=== PATIENT | female | born 1965 | race African-American/Black ===

== ENCOUNTER 2020-08-25 20:27 | Emergency (ER) | payer OTHER ==
--- OUTSIDE RECORDS SUMMARY | 2020-08-25 20:30 | XMS REPORT | Continuity of Care Document ---
:1965 Author Organization [facility] t Address [address] [place] [address] Care Team Providers Name Role Phone Erin PONCE, Huma Attending Clinician Doctor Unassigned, Name Attending Clinician Unavailable Problems This patient has no known problems. Allergies, Adverse Reactions, Alerts This patient has no known allergies or adverse reactions. Medications This patient has no known medications. Procedures This patient has no known procedures. Encounters Start End Encounter Admission Attending Care Care Encounter Source Date/Time Date/Time Type Type Clinicians Facility Department ID 2020-07-30 2020-07-30 Office VALERY Khan [id number] 14:29:17 16:07:30 Visit [facility] [id number] [place] [id number] [place] [id number] nal [address] 2020-07-30 2020-07-30 Orders Doctor PAM [id number] 00:00:00 00:00:00 Only UnassignedMARTIR [id number] [place] [facility] [id number] [id number] Results This patient has no known results.
[2020-08-25] MEDS ORDERED: NA CHLORIDE 0.9% 500 ML ONE (21:29)
[2020-08-25] MEDS ORDERED: LIDOCAINE VISCOUS 2% SOLN 15 ML UDC ONE (21:29)
[2020-08-25] MEDS ORDERED: MAGNES/ALUMIN/SIMET 30ML UCUP ONE (21:29)
[2020-08-25] MEDS ORDERED: LORazepam 2 MG/ML VIAL ONE (21:29)
[2020-08-25] MEDS ORDERED: METOCLOPRAMIDE 10 MG/2mL INJ ONE (21:30)
[2020-08-25] MEDS ORDERED: FAMOTIDINE 20 MG/2 ML VIAL IV ONE (21:30)
[2020-08-25 21:45] LABS: ALT/SGPT 21 U/L (12-78); AST/SGOT 9 U/L (15-37); Albumin 3.7 g/dL (3.4-5.0); Alkaline Phosphatase 77 U/L (45-117); BUN Blood Urea Nitrogen 8 mg/dL (7-18); Bicarbonate 28 mmol/L (21-32); Bilirubin Direct < 0.1 mg/dL (0-0.2); Bilirubin Total 0.5 mg/dL (0.2-1.0); Glucose Level 199 mg/dL (74-106); Magnesium 2.2 mg/dL (1.8-2.4); NT PRO-BNP 24 pg/mL (<125); Potassium 3.1 mmol/L (3.5-5.1); Sodium Level 138 mmol/L (136-145); Troponin (Emerg Dept Use Only) < 0.02 ng/mL (0.0-0.045)
[2020-08-25 21:46] LABS: Absolute Lymphocytes (CBC) 2.8 K/uL (0.7-4.9); Basophils % 0.9 % (0-1.3); Lymphocytes % 44.3 % (15.3-44.8); MPV 7.7 fL (7.6-11.3); RBC Red Blood Cell Count 4.89 M/uL (3.86-4.86)
[2020-08-25 22:12] LABS: Protime INR 1.09
--- NOTE | 2020-08-25 23:15 | EDPHYS ---
Physician Documentation [facility] Name: Kerry Sanford Age: 54 yrs Sex: Female : 1965 Arrival Date: 08/25/2020 Time: 20:31 Bed 5 Private MD: ED Physician Froylan Vieira HPI: 08/25 20:46 This 54 yrs old Black Female presents to ER via Ambulatory with complaints of Abdominal jmm Pain. 20:46 The patient presents with abdominal pain. jmm 22:41 Onset: The symptoms/episode began/occurred gradually, 7 month(s) ago. The symptoms do jmm not radiate. Associated signs and symptoms: Pertinent positives: nausea and vomiting. The symptoms are described as achy. Modifying factors: The symptoms are alleviated by nothing, the symptoms are aggravated by nothing. This is a 54 year old female with a history of HLP, HTN, DM that presents to the ED with complaints of epigastric abdominal pain which has been ongoing since a lap gabriella performed 7 months ago. Patient was evaluated in [place] yesterday with normal studies. Pain has continued and patient has called Dr. Schmitt who called in tramadol with no relief. . 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 - Social history:: Smoking status: Patient denies any tobacco usage or history of. ROS: 22:41 Constitutional: Negative for fever, chills, and weight loss, Cardiovascular: Negative jmm for chest pain, palpitations, and edema. 22:41 Abdomen/GI: Positive for abdominal pain. 22:41 All other systems are negative. Exam: 22:41 Constitutional: This is a well developed, well nourished patient who is awake, alert, jmm and in no acute distress. Chest/axilla: Normal chest wall appearance and motion. Cardiovascular: Regular rate and rhythm. No edema appreciated Respiratory: Normal respirations, no respiratory distress appreciated 22:41 Back: Normal ROM Skin: General appearance color normal MS/ Extremity: Moves all extremities, no obvious deformities appreciated, no edema noted to the lower extremities Neuro: Awake and alert, normal gait Psych: Behavior is normal, Mood is normal, Patient is cooperative and pleasant 22:41 Abdomen/GI: Inspection: abdomen appears normal, Bowel sounds: normal, Palpation: soft, mild abdominal tenderness, in the epigastric area. Vital Signs: 20:44 BP 181 / 100; Pulse 99; Resp 18; Temp 97.6; Pulse Ox 100% on R/A; Weight 109.77 kg; em Height 5 ft. 6 in. (167.64 cm); Pain 7/10; 21:23 BP 175 / 95; Pulse 95; Resp 17; Pulse Ox 98% ; rr5 22:33 BP 151 / 71; Pulse 90; Resp 17; Pulse Ox 98% ; Pain 6/10; rr5 23:28 BP 157 / 64; Pulse 85; Resp 16; Pulse Ox 98% ; rr5 20:44 Body Mass Index 39.06 (109.77 kg, 167.64 cm) em MDM: 20:46 Patient medically screened. [facility] 23:12 Data reviewed: vital signs, nurses notes. Counseling: I had a detailed discussion with venessa the patient and/or guardian regarding: the historical points, exam findings, and any diagnostic results supporting the discharge/admit diagnosis, lab results, radiology results, the need for outpatient follow up, to return to the emergency department if symptoms worsen or persist or if there are any questions or concerns that arise at home. ED course: Pain relieved in the ED. Patient is advised to follow up with Dr. Schmitt for reevaluation. Patient is otherwise given strict return precautions. Patient understood and agrees with the plan of care. . 08/25 20:54 Order name: Basic Metabolic Panel [facility] 08/25 20:54 Order name: CBC with Diff rr08/25 20:54 Order name: LFT's; Complete Time: 22:04 5 08/25 20:54 Order name: Magnesium; Complete Time: 22:04 [facility] 08/25 20:54 Order name: NT PRO-BNP; Complete Time: 22:04 [facility] 08/25 20:54 Order name: PT-INR; Complete Time: 22:18 [facility] 08/25 20:54 Order name: Troponin (emerg Dept Use Only); Complete Time: 22:04 [facility] 08/25 20:54 Order name: XRAY Chest (1 view) rr5 08/25 20:54 Order name: Basic Metabolic Panel; Complete Time: 22:04 EDMS 08/25 20:54 Order name: CBC with Automated Diff; Complete Time: 22:04 EDMS 08/25 21:05 Order name: CT Abd/Pelvis - Without Contrast [facility] 08/25 20:54 Order name: EKG; Complete Time: 20:54 rr5 08/25 20:54 Order name: Cardiac monitoring; Complete Time: 20:54 rr5 08/25 20:54 Order name: EKG - Nurse/Tech; Complete Time: 20:54 rr5 08/25 20:54 Order name: IV Saline Lock; Complete Time: 20:54 rr5 08/25 20:54 Order name: Labs collected and sent; Complete Time: 20:54 rr5 08/25 20:54 Order name: O2 Per Protocol; Complete Time: 20:54 rr5 08/25 20:54 Order name: O2 Sat Monitoring; Complete Time: 20:54 rr5 Administered Medications: 21:30 Drug: NS 0.9% 500 ml Route: IV; Rate: bolus; Site: right wrist; rr5 22:15 Follow up: Response: No adverse reaction; IV Status: Completed infusion; IV Intake: rr5 500ml 21:30 Drug: Reglan 20 mg Route: IVP; Site: right wrist; rr5 22:30 Follow up: Response: No adverse reaction rr5 21:32 Drug: Pepcid 20 mg Route: IVP; Site: right wrist; rr5 22:32 Follow up: Response: No adverse reaction; Pain is decreased rr5 21:35 Drug: Ativan 1 mg Route: IVP; Site: right wrist; rr5 22:35 Follow up: Response: No adverse reaction rr5 21:36 Drug: GI Cocktail without - (Maalox Suspension 30 ml, Lidocaine Liquid 2 % 15 rr5 ml) Route: PO; 22:30 Follow up: Response: No adverse reaction; Pain is decreased rr5 Disposition: 08/26 05:09 Co-signature as Attending Physician, Froylan Vieira MD I agree with the assessment and kaia plan of care. Disposition: 08/25/20 23:14 Discharged to Home. Impression: Generalized abdominal pain. - Condition is Stable. - Discharge Instructions: Abdominal Pain, Adult. - Medication Reconciliation Form, Thank You Letter, Antibiotic Education, Prescription Opioid Use form. - Follow up: Private Physician; When: 2 - 3 days; Reason: Recheck today's complaints, Continuance of care, Re-evaluation by your physician. Signatures: Dispatcher [employer] Froylan Rust MD MD cha Mickail, Joel, PA PA jmm Munoz, Edgar, RN RN em Ian Jay RN RN rr5 Corrections: (The following items were deleted from the chart) 08/25 23:31 23:14 08/25/2020 23:14 Discharged to Home. Impression: Generalized abdominal pain. rr5 Condition is Stable. Forms are Medication Reconciliation Form, Thank You Letter, Antibiotic Education, Prescription Opioid Use. Follow up: Private Physician; When: 2 - 3 days; Reason: Recheck today's complaints, Continuance of care, Re-evaluation by your physician. venessa
--- NOTE | 2020-08-25 23:15 | ER ---
Nurse's Notes [facility] Name: Kerry Sanford Age: 54 yrs Sex: Female : 1965 Arrival Date: 08/25/2020 Time: 20:31 Bed 5 Private MD: Diagnosis: Generalized abdominal pain Presentation: 08/25 20:44 Chief complaint: Patient states: abdominal pain with N/V/D since yesterday, was seen at [facility] and diagnosed with gastritis/esophagitis and discharged, covid negative. Coronavirus screen: Client denies travel out of the [place] in the last 14 days. The client reports previous COVID testing was negative. Date of collection: August 24, 2020. Ebola Screen: Patient negative for fever greater than or equal to 101.5 degrees Fahrenheit, and additional compatible Ebola Virus Disease symptoms Patient denies exposure to infectious person. Patient denies travel to an Ebola-affected area in the 21 days before illness onset. No symptoms or risks identified at this time. Initial Sepsis Screen: Does the patient meet any 2 criteria? HR > 90 bpm. No. Patient's initial sepsis screen is negative. Does the patient have a suspected source of infection? No. Patient's initial sepsis screen is negative. Risk Assessment: Do you want to hurt yourself or someone else? Patient reports no desire to harm self or others. Onset of symptoms was August 25, 2020. 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 - Social history:: Smoking status: Patient denies any tobacco usage or history of. Screenin:55 Abuse screen: Denies threats or abuse. Denies injuries from another. Nutritional rr5 screening: No deficits noted. Tuberculosis screening: No symptoms or risk factors identified. Fall Risk IV access (20 points). Total Grubbs Fall Scale indicates No Risk (0-24 pts). Assessment: 20:40 General: Appears in no apparent distress. uncomfortable, Behavior is calm, cooperative, rr5 appropriate for age. 20:40 Pain: Complains of pain in epigastric area Pain currently is 7 out of 10 on a pain rr5 scale. Quality of pain is described as aching, Pain began gradually, Is intermittent. Neuro: Level of Consciousness is awake, alert, obeys commands, Oriented to person, place, time, situation. Cardiovascular: Capillary refill < 3 seconds Patient's skin is warm and dry. Respiratory: Airway is patent Respiratory effort is even, unlabored, Respiratory pattern is regular, symmetrical. GI: Abdomen is round non-distended, Abd is soft and non tender Reports upper abdominal pain. : No signs and/or symptoms were reported regarding the genitourinary system. EENT: No signs and/or symptoms were reported regarding the EENT system. Derm: Skin is intact, is healthy with good turgor, Skin temperature is warm. Musculoskeletal: Capillary refill < 3 seconds. 21:40 Reassessment: Patient appears in no apparent distress at this time. Patient is alert, rr5 oriented x 3, equal unlabored respirations, skin warm/dry/pink. awaiting for results. 22:33 Reassessment: Patient appears in no apparent distress at this time. Patient is alert, rr5 oriented x 3, equal unlabored respirations, skin warm/dry/pink. Patient states feeling better. 23:29 Reassessment: Patient appears in no apparent distress at this time. Patient is alert, rr5 oriented x 3, equal unlabored respirations, skin warm/dry/pink. discharge instruction given and explained without complaints made. Vital Signs: 20:44 BP 181 / 100; Pulse 99; Resp 18; Temp 97.6; Pulse Ox 100% on R/A; Weight 109.77 kg; em Height 5 ft. 6 in. (167.64 cm); Pain 7/10; 21:23 BP 175 / 95; Pulse 95; Resp 17; Pulse Ox 98% ; rr5 22:33 BP 151 / 71; Pulse 90; Resp 17; Pulse Ox 98% ; Pain 6/10; rr5 23:28 BP 157 / 64; Pulse 85; Resp 16; Pulse Ox 98% ; rr5 20:44 Body Mass Index 39.06 (109.77 kg, 167.64 cm) em ED Course: 20:31 Patient arrived in ED. cf2 20:40 Nasir Bird PA is PHCP. jmm 20:40 Froylan Vieira MD is Attending Physician. jmm 20:44 Ian Jay, TALYA is Primary Nurse. rr5 20:47 Triage completed. em 20:49 Arm band placed on. em 20:54 EKG done, by ED staff, reviewed by Froylan Vieira MD. Inserted saline lock: 20 gauge in rr5 right wrist, using aseptic technique. Blood collected. 20:57 Patient has correct armband on for positive identification. Bed in low position. Call rr5 light in reach. ekg monitor tech on. Pulse ox on. NIBP on. 21:26 CT Abd/Pelvis - Without Contrast In Process Unspecified. EDMS 21:34 XRAY Chest (1 view) In Process Unspecified. EDMS 23:29 No provider procedures requiring assistance completed. IV discontinued, intact, rr5 bleeding controlled, No redness/swelling at site. Pressure dressing applied. Administered Medications: 21:30 Drug: NS 0.9% 500 ml Route: IV; Rate: bolus; Site: right wrist; rr5 22:15 Follow up: Response: No adverse reaction; IV Status: Completed infusion; IV Intake: rr5 500ml 21:30 Drug: Reglan 20 mg Route: IVP; Site: right wrist; rr5 22:30 Follow up: Response: No adverse reaction rr5 21:32 Drug: Pepcid 20 mg Route: IVP; Site: right wrist; rr5 22:32 Follow up: Response: No adverse reaction; Pain is decreased rr5 21:35 Drug: Ativan 1 mg Route: IVP; Site: right wrist; rr5 22:35 Follow up: Response: No adverse reaction rr5 21:36 Drug: GI Cocktail without - (Maalox Suspension 30 ml, Lidocaine Liquid 2 % 15 rr5 ml) Route: PO; 22:30 Follow up: Response: No adverse reaction; Pain is decreased rr5 Intake: 22:15 IV: 500ml; Total: 500ml. rr5 Outcome: 23:14 Discharge ordered by . jmm 23:29 Discharged to home via wheelchair, with family. rr5 23:29 Condition: stable 23:29 Discharge instructions given to patient, Instructed on discharge instructions, follow up and referral plans. Demonstrated understanding of instructions, follow-up care. 23:31 Patient left the ED. rr5 Signatures: Dispatcher [employer] Nasir Jackson PA PA jmm Munoz, Edgar RN RN Ian Friend RN RN rr5 Dariel Bradley 2
[2020-08-26 03:38] VITALS: TEMP 97.6
[2020-08-26 03:39] VITALS: O2SAT 98
[2020-08-26 03:42] VITALS: BP 157/64
--- NOTE | 2020-08-26 08:36 | RAD REPORT ---
EXAM DESCRIPTION: RAD - Chest Single View - 08/25/2020 9:34 pm CLINICAL HISTORY: epigastirc pain Chest pain. COMPARISON: CHEST SINGLE VIEW dated 03/19/2012; ABDOMEN ACUTE SERIES dated 06/17/2011; ABDOMEN ACUTE SERIES dated 01/28/2007 FINDINGS: Portable technique limits examination quality. The lungs are grossly clear. The heart is normal in size. No displaced fractures. Cervical hardware p late. IMPRESSION: No acute intrathoracic process suspected.
--- NOTE | 2020-08-26 09:51 | RAD REPORT ---
EXAM DESCRIPTION: Abdomen Pelvis Wo Contrast CLINICAL HISTORY: Abdominal pain COMPARISON: None Available TECHNIQUE: Contiguous axial images of the abdomen and pelvis were obtained followed by reconstructio n images. This exam was performed according to our departmental dose-optimization program, which incl udes automated exposure control, adjustment of the mA and/or kV according to patient size and/or use of iterative reconstruction technique. FINDINGS: There is atherosclerosis. Patient is status post cholecystectomy. Calcifications within th e pelvis compatible with phleboliths. The liver, spleen, pancreas and kidneys are within normal limits. There is no hydronephrosis or renal stones. Adrenal glands are within normal limits. Aorta is of normal caliber and tapering. There is n o free fluid in the abdomen or pelvis. There is no bowel obstruction. There is no stranding of the me senteric fat to suggest an inflammatory response. The appendix is within normal limits. There is no p ericecal inflammation. IMPRESSION: No acute intra-abdominal abnormality. Electronically signed by: Elpidio Be MD 08/25/2020 9:48 PM MAINTENANCE CONSTRUCTION HELPER Due to temporary technical issues with the PACS/Fluency reporting system, reports are being signed by the in house radiologist without review as a courtesy to ensure prompt reporting. The interpreting r adiologist is fully responsible for the content of the report.
--- NOTE | 2020-08-26 22:27 | EKG ---
Test Date: 2020-08-25 Test Time: 20:57:49 [place] Attendant: NATASHA MEASUREMENT RESULTS: Intervals: Rate: 95 OK: 152 QRSD: 92 QT: 356 QTc: 447 [place]: P: 74 OK: 152 QRS: 45 T: 54 INTERPRETIVE STATEMENTS: Normal sinus rhythm Normal ECG Compared to ECG 03/21/2012 03:22:49 No significant changes Electronically Signed On 08-26-20 22:25:32 PERSONAL LINES SALES REP by Christian Inman
== END 2020-08-25 23:31 | disposition home or self-care (01) ==
LOC: ER 20:27
DX: R10.84 Generalized abdominal pain (principal); I10 Essential (primary) hypertension; Z88.5 Allergy status to narcotic agent; Z88.8 Allergy status to other drugs, medicaments and biological substances
CPT/HCPCS: 96361; 93005; 85025; 80048; 36415; 83735; 85610; 80076; 84484; 83880; 74176; 71045; 96375; 96374; 99284; J2765; J7040

== ENCOUNTER 2020-09-20 23:44 | Emergency (ER) | payer OTHER ==
--- OUTSIDE RECORDS SUMMARY | 2020-09-20 23:48 | XMS REPORT | Continuity of Care Document ---
:[address] [facility] t Address [address] [place] [address] Care Team Providers Name Role Phone Doctor Unassigned, Name Attending Clinician Unavailable Erin PONCE, A Attending Clinician Problems This patient has no known problems. Allergies, Adverse Reactions, Alerts This patient has no known allergies or adverse reactions. Medications This patient has no known medications. Procedures This patient has no known procedures. Encounters Start End Encounter Admission Attending Care Care Encounter Source Date/Time Date/Time Type Type Clinicians Facility Department ID 2020-08-24 2020-08-24 Orders Doctor OROZCO [id number] 00:00:00 00:00:00 Only UnassignedMARTIR [id number] [place] [facility] [id number] 2020-07-30 2020-07-30 Office VALERY Khan [id number] 14:29:17 16:07:30 Visit [facility] [id number] [place] [id number] [place] [id number] nal 044 [address] 2020-07-30 2020-07-30 Orders Doctor OROZCO [id number] 00:00:00 00:00:00 Only UnassignedMARTIR [id number] [place] [facility] [id number] [id number] Results This patient has no known results.
[2020-09-21 00:19] LABS: Absolute Lymphocytes (CBC) 2.4 K/uL (0.7-4.9); Basophils % 0.5 % (0-1.3); Lymphocytes % 38.6 % (15.3-44.8); MPV 7.3 fL (7.6-11.3); RBC Red Blood Cell Count 4.76 M/uL (3.86-4.86)
[2020-09-21] MEDS ORDERED: MORPHINE 4 MG/ML SYR ONE ×2 (00:34→02:47)
[2020-09-21] MEDS ORDERED: ONDANSETRON 4 MG/2 ML VIAL ONE (00:34)
[2020-09-21] MEDS ORDERED: NA CHLORIDE 0.9% 1,000 ML ONE (00:35)
[2020-09-21] MEDS ORDERED: FAMOTIDINE 20 MG/2 ML VIAL IV ONE (00:35)
[2020-09-21 00:59] LABS: Albumin 3.8 g/dL (3.4-5.0); Bilirubin Direct 0.1 mg/dL (0-0.2); Bilirubin Total 0.7 mg/dL (0.2-1.0); Potassium 2.7 mmol/L (3.5-5.1); Protein, Total 7.8 g/dL (6.4-8.2)
[2020-09-21] MEDS ORDERED: POTASSIUM 25 MEQ EFFERV TAB ONE (02:46)
[2020-09-21] MEDS ORDERED: KCL 20 MEQ/100 mL IVPB 20 MEQ/100 ML BAG IV ONE (03:03)
[2020-09-21] MEDS ORDERED: NA CHLORIDE 0.9% 100 ML ONE (03:03)
[2020-09-21] MEDS ORDERED: METOCLOPRAMIDE 10 MG/2mL INJ ONE (03:22)
[2020-09-21] MEDS ORDERED: PROMETHAZINE INJ 25 MG/ML AMP ONE (03:22)
--- NOTE | 2020-09-21 04:33 | EDPHYS ---
Physician Documentation [facility] Name: Kerry Sanford Age: 54 yrs Sex: Female : 1965 Arrival Date: 09/20/2020 Time: 23:48 Bed 20 Private MD: ED Physician Curt Zee HPI: 09/21 00:31 This 54 yrs old Black Female presents to ER via Wheelchair with complaints of Abdominal mh7 Pain. 00:31 The patient presents with abdominal pain in the epigastric area. Onset: The mh7 symptoms/episode began/occurred 1 week(s) ago, intermittent for 8 months. The symptoms do not radiate. Associated signs and symptoms: Pertinent positives: nausea, vomiting, and diarrhea, Pertinent negatives: anorexia, blood in stools, chest pain, constipation, dysuria, fever, headache, hematuria, palpitations, shortness of breath, vaginal discharge, vomiting blood. The symptoms are described as intermittent, vague, waxing/waning. Modifying factors: The symptoms are alleviated by nothing, the symptoms are aggravated by nothing. Severity of pain: At its worst the pain was moderate 6 day(s) ago, in the emergency department the pain is unchanged. The patient has experienced similar episodes in the past, multiple times. The patient has been recently seen by a physician: outside ED 6 days ago. 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 - Social history:: Smoking status: Patient denies any tobacco usage or history of. Patient/guardian denies using alcohol, street drugs. ROS: 00:31 Constitutional: Negative for fever, chills, and weight loss, Eyes: Negative for injury, mh7 pain, redness, and discharge, ENT: Negative for injury, pain, and discharge, Neck: Negative for injury, pain, and swelling, Cardiovascular: Negative for chest pain, palpitations, and edema, Respiratory: Negative for shortness of breath, cough, wheezing, and pleuritic chest pain, Back: Negative for injury and pain, : Negative for injury, bleeding, discharge, and swelling, MS/Extremity: Negative for injury and deformity, Skin: Negative for injury, rash, and discoloration, Neuro: Negative for headache, weakness, numbness, tingling, and seizure, Psych: Negative for depression, anxiety, suicide ideation, homicidal ideation, and hallucinations, Allergy/Immunology: Negative for hives, rash, and allergies, Endocrine: Negative for neck swelling, polydipsia, polyuria, polyphagia, and marked weight changes, Hematologic/Lymphatic: Negative for swollen nodes, abnormal bleeding, and unusual bruising. Exam: 00:31 Head/Face: Normocephalic, atraumatic. Eyes: Pupils equal round and reactive to light, mh7 extra-ocular motions intact. Lids and lashes normal. Conjunctiva and sclera are non-icteric and not injected. Cornea within normal limits. Periorbital areas with no swelling, redness, or edema. Neck: Trachea midline, no thyromegaly or masses palpated, and no cervical lymphadenopathy. Supple, full range of motion without nuchal rigidity, or vertebral point tenderness. No Meningismus. Chest/axilla: Normal chest wall appearance and motion. Nontender with no deformity. No lesions are appreciated. Cardiovascular: Regular rate and rhythm with a normal S1 and S2. No gallops, murmurs, or rubs. Normal PMI, no JVD. No pulse deficits. Respiratory: Lungs have equal breath sounds bilaterally, clear to auscultation and percussion. No rales, rhonchi or wheezes noted. No increased work of breathing, no retractions or nasal flaring. 00:31 Back: No spinal tenderness. No costovertebral tenderness. Full range of motion. Skin: Warm, dry with normal turgor. Normal color with no rashes, no lesions, and no evidence of cellulitis. MS/ Extremity: Pulses equal, no cyanosis. Neurovascular intact. Full, normal range of motion. Neuro: Awake and alert, GCS 15, oriented to person, place, time, and situation. Cranial nerves II-XII grossly intact. Motor strength 5/5 in all extremities. Sensory grossly intact. Cerebellar exam normal. Normal gait. Psych: Awake, alert, with orientation to person, place and time. Behavior, mood, and affect are within normal limits. 00:31 Constitutional: The patient appears in no acute distress, alert, awake, uncomfortable. 00:31 Abdomen/GI: Inspection: obese Bowel sounds: normal, in all quadrants, Palpation: moderate abdominal tenderness, in the epigastric area, mass, is not appreciated, rebound tenderness, is not appreciated, voluntary guarding, is not appreciated, involuntary guarding, is not appreciated, no appreciated organomegaly, Rectal exam: the exam is deferred, because of patient request, Indicators: McBurney's point is not tender, Leon's sign is negative, Rovsing's sign is negative, Obturator sign is negative, Psoas sign is negative, Liver: no appreciated palpable abnormalities, Hernia: not appreciated. Vital Signs: 00:01 BP 199 / 99; Pulse 110; Resp 18 S; Temp 98.2(O); Pulse Ox 100% on R/A; Weight 106.14 kg bb (R); Height 5 ft. 5 in. (165.10 cm) (R); Pain 10/10; 01:00 BP 189 / 114; Pulse 91; Resp 17; Pulse Ox 100% on R/A; rv 02:15 BP 183 / 83; Pulse 94; Resp 15; Pulse Ox 96% on R/A; rv 03:56 BP 177 / 68; Pulse 96; Resp 16; Pulse Ox 95% on R/A; rv 04:43 BP 170 / 67; Pulse 64; Resp 15; Pulse Ox 98% on R/A; rv 00:01 Body Mass Index 38.94 (106.14 kg, 165.10 cm) bb MDM: 04:31 Differential diagnosis: bowel obstruction, diverticulitis, gastritis, non-specific abd mh7 pain, pancreatitis, Peptic Ulcer Disease, Perf. Duodenal Ulcer, Pyelonephritis, Ureterolithiasis, urinary tract infection. Data reviewed: vital signs, nurses notes, lab test result(s), amylase and lipase, CBC, electrolytes, urinalysis, EKG. Data interpreted: Pulse oximetry: on room air is 95 %. Interpretation: normal. Counseling: I had a detailed discussion with the patient and/or guardian regarding: the historical points, exam findings, and any diagnostic results supporting the discharge/admit diagnosis, the presence of at least one elevated blood pressure reading (>120/80) during this emergency department visit, lab results, to return to the emergency department if symptoms worsen or persist or if there are any questions or concerns that arise at home. Response to treatment: the patient's symptoms have mildly improved after treatment. Refusal of service: The patient/guardian displays adequate decision making capability and despite a detailed discussion of alternatives, benefits, risks, and consequences refuses: CT Scan, all X-rays. 04:33 Patient medically screened. [facility] 09/21 00:06 Order name: Basic Metabolic Panel; Complete Time: :40 09/21 00:06 Order name: CBC with Diff; Complete Time: :40 09/21 00:06 Order name: Hepatic Function; Complete Time: :40 09/21 00:06 Order name: Lipase; Complete Time: :40 09/21 02:19 Order name: Ketone, Serum; Complete Time: 03:21 [facility] 09/21 02:35 Order name: Urine Dipstick--Ancillary (enter results) rv 09/21 02:36 Order name: Urine Dipstick-Ancillary [facility] 09/21 00:06 Order name: IV Saline Lock; Complete Time: 00:06 09/21 00:06 Order name: Labs collected and sent; Complete Time: 00:06 09/21 00:14 Order name: Urine Dipstick-Ancillary (obtain specimen); Complete Time: 02:28 [facility] 09/21 00:14 Order name: EKG - Nurse/Tech; Complete Time: 00:28 [facility] Administered Medications: 00:28 Drug: NS 0.9% 1000 ml Route: IV; Rate: 1000 ml; Site: right forearm; rv 02:27 Follow up: IV Status: Completed infusion; IV Intake: 1000ml rv 00:28 Drug: morphine 4 mg Route: IVP; Site: right forearm; rv 02:50 Follow up: Response: No adverse reaction; Pain is decreased; RASS: Alert and Calm (0) rv 00:28 Drug: Zofran (Ondansetron) 4 mg Route: IVP; Site: right forearm; rv 02:50 Follow up: Response: No adverse reaction rv 00:28 Drug: Pepcid (famotidine) 20 mg Route: IVP; Site: right forearm; rv 02:51 Follow up: Response: No adverse reaction rv 02:39 Drug: morphine 4 mg {Note: RASS 0.} Route: IVP; Site: right forearm; bb 04:45 Follow up: Response: No adverse reaction; Pain is decreased; RASS: Alert and Calm (0) rv 02:46 Not Given (Patient Refused): Potassium Effervescent Tablet 50 mEq PO once; dissolve in bb 4 ounces of water or juice 02:50 Drug: Potassium Chloride 20 mEq Route: IV; Rate: calculated rate; Site: right forearm; rv 04:45 Follow up: IV Status: Completed infusion; IV Intake: 100ml rv 03:09 Drug: Reglan 10 mg Route: IVP; Site: right forearm; rv 04:45 Follow up: Response: No adverse reaction; Nausea is decreased rv Disposition: 09/21/20 04:33 Patient has left against medical advice. Impression: Upper abdominal pain, unspecified, Nausea with vomiting, unspecified, Hypokalemia, Diarrhea, unspecified. - Patients states they are going to Home. - Condition is Stable. - Discharge Instructions: Diarrhea, Adult, Nausea and Vomiting, Adult, Abdominal Pain, Adult, [id number]. - Prescriptions for Zofran ODT 4 mg Oral tablet,disintegrating - place 1 tablet by TRANSLINGUAL route every 8 hours As needed; 10 tablet. Bentyl 20 mg Oral Tablet - take 1 tablet by ORAL route every 6 hours As needed; 20 tablet. Follow up: Private Physician; When: 1 - 2 days; Reason: Worsening of condition, Recheck today's complaints, Continuance of care, Re-evaluation by your physician. - Problem is an ongoing problem. - Symptoms have improved. Signatures: Dispatcher [employer] EDKyra Barroso RN RN Corey Floyd RN RN Curt Guardado MD MD mh7 Corrections: (The following items were deleted from the chart) 04:33 04:33 09/21/2020 04:33 Patients has left against medical advice. Impression: Upper mh7 abdominal pain, unspecified; Nausea with vomiting, unspecified. Patient states they are going to Home. Condition is Stable. Follow up: Private Physician; When: 1 - 2 days; Reason: Worsening of condition, Recheck today's complaints, Continuance of care, Re-evaluation by your physician. Problem is an ongoing problem. Symptoms have improved. mh7 04:45 04:33 09/21/2020 04:33 Patients has left against medical advice. Impression: Upper rv abdominal pain, unspecified; Nausea with vomiting, unspecified; Hypokalemia; Diarrhea, unspecified. Patient states they are going to Home. Condition is Stable. Follow up: Private Physician; When: 1 - 2 days; Reason: Worsening of condition, Recheck today's complaints, Continuance of care, Re-evaluation by your physician. Problem is an ongoing problem. Symptoms have improved. mh7
--- NOTE | 2020-09-21 04:33 | ER ---
Nurse's Notes [facility] Name: Kerry Sanford Age: 54 yrs Sex: Female : 1965 Arrival Date: 09/20/2020 Time: 23:48 Bed 20 Private MD: Diagnosis: Upper abdominal pain, unspecified;Nausea with vomiting, unspecified;Hypokalemia;Diarrhea, unspecified Presentation: 09/21 00:01 Chief complaint: Patient states: she had her gallbladder out about 8 months ago and has bb been sick [place] but she is still having right upper quad pain, nausea, vomiting and diarrhea. Coronavirus screen: The client reports previous COVID testing was negative. Date of collection: September 15, 2020. Ebola Screen: No symptoms or risks identified at this time. Initial Sepsis Screen: Does the patient meet any 2 criteria? No. Patient's initial sepsis screen is negative. Does the patient have a suspected source of infection? Yes: Acute abdominal pain. Risk Assessment: Do you want to hurt yourself or someone else? Patient reports no desire to harm self or others. Onset of symptoms was September 15, 2020. 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 - Social history:: Smoking status: Patient denies any tobacco usage or history of. Patient/guardian denies using alcohol, street drugs. Screenin:07 Abuse screen: Denies threats or abuse. Denies injuries from another. Nutritional rv screening: No deficits noted. Tuberculosis screening: No symptoms or risk factors identified. Fall Risk None identified. Assessment: 00:07 General: Appears uncomfortable, Behavior is calm, cooperative. Pain: Complains of pain rv in abdomen. Neuro: Level of Consciousness is awake, alert, obeys commands, Oriented to person, place, time, situation. Cardiovascular: Patient's skin is warm and dry. Respiratory: Airway is patent Respiratory effort is even, unlabored. GI: Bowel sounds present X 4 quads. Abd is soft and non tender X 4 quads. GI: Pt is actively vomiting. Derm: Skin is intact. 02:52 Reassessment: PATIENT IS STILL IN PAIN AND AND NAUSEATED, REFERRED TO DR ZEE, DR annabelle ZEE AT BEDSIDE, EXPLAINED THE TEST RESULTS AND PLAN OF CARE, RECEIVED NEW ORDERS, PATIENT TAKEN TO THE CT SCAN. 03:23 Reassessment: PATIENT UNABLE TO FINISH CT SCAN, COMPLAINING OF NAUSEA AND ANXIETY, rv REFERRED TO DR ZEE, PATIENT REFUSED TO DO ANYTHING FOR NOW. 04:44 Reassessment: PATIENT REFUSED THE CT SCAN. rv Vital Signs: 00:01 BP 199 / 99; Pulse 110; Resp 18 S; Temp 98.2(O); Pulse Ox 100% on R/A; Weight 106.14 kg bb (R); Height 5 ft. 5 in. (165.10 cm) (R); Pain 10/10; 01:00 BP 189 / 114; Pulse 91; Resp 17; Pulse Ox 100% on R/A; rv 02:15 BP 183 / 83; Pulse 94; Resp 15; Pulse Ox 96% on R/A; rv 03:56 BP 177 / 68; Pulse 96; Resp 16; Pulse Ox 95% on R/A; rv 04:43 BP 170 / 67; Pulse 64; Resp 15; Pulse Ox 98% on R/A; rv 00:01 Body Mass Index 38.94 (106.14 kg, 165.10 cm) bb ED Course: 09/20 23:48 Patient arrived in ED. cf2 23:56 Curt Zee MD is Attending Physician. mh7 23:57 Corey Rouse, TALYA is Primary Nurse. rv 09/21 00:04 Triage completed. bb 00:06 Arm band placed on Patient placed in an exam room, on a stretcher, on pulse oximetry. bb 00:06 Initial lab(s) drawn, by me, sent to lab. Inserted saline lock: 20 gauge in right rv forearm, using aseptic technique. Blood collected. 00:07 Patient has correct armband on for positive identification. Pulse ox on. NIBP on. rv 00:29 EKG done, by ED staff, reviewed by Curt Zee MD. rv 01:00 Notified ED physician of a critical lab result(s). [POTASSIUM 2.7. rv 04:44 No provider procedures requiring assistance completed. IV discontinued, intact, rv bleeding controlled, No redness/swelling at site. Pressure dressing applied. Administered Medications: 00:28 Drug: NS 0.9% 1000 ml Route: IV; Rate: 1000 ml; Site: right forearm; rv 02:27 Follow up: IV Status: Completed infusion; IV Intake: 1000ml rv 00:28 Drug: morphine 4 mg Route: IVP; Site: right forearm; rv 02:50 Follow up: Response: No adverse reaction; Pain is decreased; RASS: Alert and Calm (0) rv 00:28 Drug: Zofran (Ondansetron) 4 mg Route: IVP; Site: right forearm; rv 02:50 Follow up: Response: No adverse reaction rv 00:28 Drug: Pepcid (famotidine) 20 mg Route: IVP; Site: right forearm; rv 02:51 Follow up: Response: No adverse reaction rv 02:39 Drug: morphine 4 mg {Note: RASS 0.} Route: IVP; Site: right forearm; bb 04:45 Follow up: Response: No adverse reaction; Pain is decreased; RASS: Alert and Calm (0) rv 02:46 Not Given (Patient Refused): Potassium Effervescent Tablet 50 mEq PO once; dissolve in bb 4 ounces of water or juice 02:50 Drug: Potassium Chloride 20 mEq Route: IV; Rate: calculated rate; Site: right forearm; rv 04:45 Follow up: IV Status: Completed infusion; IV Intake: 100ml rv 03:09 Drug: Reglan 10 mg Route: IVP; Site: right forearm; rv 04:45 Follow up: Response: No adverse reaction; Nausea is decreased rv Intake: 02:27 IV: 1000ml; Total: 1000ml. rv 04:45 IV: 100ml; Total: 1100ml. rv Outcome: 04:44 Discharged to home ambulatory, with family. rv 04:44 Condition: improved 04:44 Discharge instructions given to patient, Instructed on discharge instructions, follow up and referral plans. medication usage, Demonstrated understanding of instructions, follow-up care, medications, Prescriptions given X 2. 04:45 Patient left the ED. rv Signatures: Kyra Boyd RN RN Corey Floyd RN RN rv Dariel Bradley 2 Curt Zee MD MD mh7
[2020-09-21 04:50] VITALS: TEMP 98.2
[2020-09-21 05:02] VITALS: BP 170/67; O2SAT 98
[2020-09-21 06:21] LABS: Urine Blood NEGATIVE (Negative); Urine Protein NEGATIVE (NEG)
== END 2020-09-21 04:45 | disposition left against medical advice (07) ==
LOC: ER 23:44
DX: E87.6 Hypokalemia (principal); R11.2 Nausea with vomiting, unspecified; R19.7 Diarrhea, unspecified; I10 Essential (primary) hypertension; E11.9 Type 2 diabetes mellitus without complications; E78.5 Hyperlipidemia, unspecified; Z88.5 Allergy status to narcotic agent; Z88.8 Allergy status to other drugs, medicaments and biological substances
CPT/HCPCS: 93005; 85025; 80048; 36415; 82010; 80076; 81003; 83690; J2765; J2550; J3480; J7030; J2405; 96361; 96365; 96366; 96375; 99284

== ENCOUNTER 2020-09-21 15:55 | Inpatient (IN) | payer OTHER ==
--- OUTSIDE RECORDS SUMMARY | 2020-09-21 15:58 | XMS REPORT | Continuity of Care Document ---
:1965 Author Organization Formerly [facility] t Address [address] [place] [address] Care Team Providers Name Role Phone Doctor [...] ID 2020-08-24 2020-08-24 Orders Doctor OROZCO [id number] 00:00:00 00:00:00 Only UnassignedMARTIR [id number] [place] [facility] [phone] [id number] 2020-07-30 2020-07-30 Office VALERY Khan [id number] 14:29:17 16:07:30 [id number] [place] [id number] [place] [id number] [place] [address] 2020-07-30 2020-07-30 Orders Doctor OROZCO [id number] 00:00:00 00:00:00 Only UnassignedMARTIR [id number] [place] [facility] [phone] [id number] Results This patient has no known results.
[2020-09-21] MEDS ORDERED: PROMETHAZINE INJ 25 MG/ML AMP IV PRN (16:29)
[2020-09-21] MEDS ORDERED: D50W 25 GM/50 ML VIAL IV PRN ×2 (16:32→16:55)
[2020-09-21] MEDS ORDERED: SODIUM CHLORIDE 0.9% 10ML INJ IV PRN (16:46)
[2020-09-21] MEDS ORDERED: ACETAMINOPHEN 500 MG TAB PO PRN (16:47)
[2020-09-21] MEDS ORDERED: LORazepam 2 MG/ML VIAL IV PRN (16:51)
[2020-09-21] MEDS ORDERED: GLUCAGON 1 MG/VIAL IM PRN (17:00)
--- NOTE | 2020-09-21 17:01 | P.HP ---
Certification for Inpatient Patient admitted to: Observation With expected LOS: <2 Midnights Patient will require the following post-hospital care: None Practitioner: I am a practitioner with admitting privileges, knowledge of patient current condition, hospital course, and medical plan of care. Services: Services provided to patient in accordance with Admission requirements found in Title 42 Section 412.3 of the Code of Federal Regulations Patient History Date of Service: 09/21/20 Primary Care Provider: Dr. Khan; GI-Dr. Schmitt Reason for admission: Nausea, vomiting, diarrhea History of Present Illness: 54-year-old -Algerian female with history of PVD, depression, hypertension and diabetes. Patient is a direct admit from GI. GI reports patient had nausea, vomiting, diarrhea and abdominal pain. Patient was actually seen in the emergency room last night. Her symptoms have not improved. Patient reports that her symptoms began January 2020 after she had a cholecystectomy. She reports since that time she has been having constant diarrhea. Diarrhea is watery and bilious in nature. Some mucus noted. She reports 10 pound weight loss since that time. She has bouts of nausea, vomiting. Recently she had epigastric pain. She reports having a foul taste to her mouth. Symptoms are not improved. As of most recent Lexapro was started about 2 weeks ago for increased anxiety. She also had her trazodone increased to 100 mg daily. She denies any fever, chills noted. She was a direct admit for further evaluation. Lab pending at this time. She takes losartan 100 mg for hypertension. She is not been able to take anything for diabetes as she has been tried on long-acting insulin with increased nausea and vomiting. Allergies meperidine HCl [From Demerol] Allergy (Verified 07/21/14 16:23) Anaphylaxis venlafaxine HCl [From Effexor] Allergy (Verified 07/21/14 16:23) Anaphylaxis Home medications list reviewed: Yes Home Medications: Clopidogrel Bisulfate [Plavix] 75 mg PO DAILY 09/21/20 Escitalopram Oxalate [Lexapro] 10 mg PO DAILY 09/21/20 Losartan Potassium 100 mg PO DAILY 09/21/20 Pantoprazole Sodium [Protonix] 20 mg PO DAILY 09/21/20 Trazodone HCl 100 mg PO BEDTIME 09/21/20 - Past Medical/Surgical History Diabetic: Yes -: Diabetes mellitus type 2 -: Hypertension -: Peripheral vascular disease -: Depression -: GERD -: Back surgery -: -: Cholecystectomy -: Tubal ligation -: Hysterectomy Psychosocial/ Personal History: Patient works at [employer]. - Family History Father -: Cancer (Colon cancer) - Social History Smoking Status: Never smoker Alcohol use: No CD- Drugs: No Caffeine use: No Place of Residence: Home Review of Systems General: Chills, As per HPI Eyes: Unremarkable ENT: Unremarkable Respiratory: Unremarkable Cardiovascular: Unremarkable Gastrointestinal: Nausea, Vomiting, Abdominal Pain, Diarrhea, As per HPI Genitourinary: Unremarkable Musculoskeletal: Unremarkable Integumentary: Unremarkable Neurological: Unremarkable Lymphatics: Unremarkable Physical Examination - Physical Exam General: Alert, In no apparent distress, Oriented x3, Cooperative HEENT: Atraumatic, Normocephalic, PERRLA, Other (Dry mucous membranes) Neck: Supple Respiratory: Clear to auscultation bilaterally, Normal air movement Cardiovascular: Normal pulses, Regular rate/rhythm Gastrointestinal: Normal bowel sounds, Soft and benign, Non-distended, No masses, No rebound, No guarding, Tenderness (Pain to the epigastric region) Musculoskeletal: No erythema, No tenderness, No warmth Integumentary: Other (Dry skin noted throughout) Neurological: Normal speech, Normal strength at 5/5 x4 extr, Normal tone, Normal affect Assessment and Plan - Plan Impression: Nausea, vomiting, epigastric pain and diarrhea with dehydration Diabetes mellitus type 2 with hyperglycemia Hypertension uncontrolled GERD Depression with anxiety Plan: Nausea, vomiting, epigastric pain and diarrhea with dehydration: Patient will be admitted for further evaluation and treatment. Case discussed with GI. GI plans for EGD and gastric emptying evaluation. We will start IV fluids. Check lab. Will provide medication for GERD. Provide medication for nausea and pain. Will send lab for analysis of stool. We will continue to monitor the patient closely. Etiology may be diabetic gastroparesis versus gastritis/esophagitis versus other. Anticipate improvement over the next 24 to 48 hours. Diabetes mellitus type 2 with hyperglycemia: We will start with sliding scale. Check A1c. If blood sugar significantly elevated may consider starting basal insulin. Hypertension uncontrolled: Restart losartan. We will also add metoprolol for better blood pressure control. Will provide IV medication as needed. GERD: Continue Protonix Depression with anxiety: We will hold Lexapro at this time. Patient also takes trazodone. Will hold both medications. Will provide medication for anxiety. Discharge Plan: Home Plan to discharge in: 48 Hours - Advance Directives Does patient have a Living Will: No Does patient have a Durable POA for Healthcare: No - Code Status/Comfort Care Code Status Assessed: Yes (Full code) Time Spent Managing Pts Care (In Minutes): 55
[2020-09-21 17:18] LABS: Absolute Lymphocytes (CBC) 1.4 K/uL (0.7-4.9); Basophils % 0.6 % (0-1.3); Hematocrit 39.4 % (36.0-45.0); MPV 7.4 fL (7.6-11.3); RBC Red Blood Cell Count 4.76 M/uL (3.86-4.86)
[2020-09-21] MEDS: Ringers Lactate 1,000 ML IV SCH (17:35)
[2020-09-21 17:36] LABS: Protime INR 1.17
[2020-09-21 17:38] LABS: ALT/SGPT 19 U/L (12-78); AST/SGOT 5 U/L (15-37); Albumin 3.8 g/dL (3.4-5.0); Alkaline Phosphatase 71 U/L (45-117); BUN Blood Urea Nitrogen 7 mg/dL (7-18); Bicarbonate 27 mmol/L (21-32); Bilirubin Total 0.6 mg/dL (0.2-1.0); Glucose Level 246 mg/dL (74-106); Magnesium 2.1 mg/dL (1.8-2.4); Potassium 3.3 mmol/L (3.5-5.1); Protein, Total 7.8 g/dL (6.4-8.2); Sodium Level 139 mmol/L (136-145)
[2020-09-21] MEDS: PANTOPRAZOLE 40 MG INJ IVP SCH (17:38)
[2020-09-21] MEDS: HYDROMORPHONE HCL 1 MG/ML INJ IV PRN (17:39)
[2020-09-21] MEDS: METOPROLOL TAR 25 MG TAB PO SCH (17:39)
[2020-09-21] MEDS: ENOXAPARIN 40 MG/0.4 ML SQ SCH (17:39)
--- NOTE | 2020-09-21 18:31 | RAD REPORT ---
EXAM DESCRIPTION: RAD - Abdomen 1 View (KUB) - 09/21/2020 5:45 pm CLINICAL HISTORY: nausea and vomiting Pain COMPARISON: No comparisons FINDINGS: The bowel gas pattern is non-obstructive. No evidence of free air or pneumatosis. No suspi cious calcifications. No significant bony findings. Cholecystectomy clips. IMPRESSION: Negative examination.
[2020-09-21 18:36] LABS: Urine Appearance CLEAR (Clear); Urine Bilirubin NEGATIVE (NEG); Urine Blood NEGATIVE (Negative); Urine Color YELLOW (Yellow); Urine Glucose 3+ (Negative); Urine Protein TRACE (NEG); Urine Specific Gravity >=1.030 (1.005-1.030); Urine Urobilinogen 0.2 mg/dL (0.2-1.0)
[2020-09-21 18:37] LABS: Urine Microscopic Reflex ORDER UMIC
[2020-09-21 18:54] LABS: Urine Bacteria <20 /HPF (<20); Urine Mucus 1+ /HPF (NONE SEEN); Urine RBC <5 /HPF (NONE SEEN)
--- NOTE | 2020-09-21 20:14 | RAD REPORT ---
EXAM DESCRIPTION: US - Abdomen Exam Complete - 09/21/2020 7:28 pm CLINICAL HISTORY: Abdominal pain. epigastric pain, N/V, Diarrhea COMPARISON: ABDOMINAL EXAM COMPLETE dated 11/30/2010; Abdomen Pelvis Wo Contrast dated 08/25/2020 FINDINGS: The liver is normal in size, shape and echotexture. No focal liver lesions or intrahepatic biliary dilatation is seen. Cholecystectomy. Common bile duct is normal in caliber measuring 5 millimeters. Both kidneys are normal in size, shape and echotexture. No hydronephrosis, focal lesion of concern or perinephric fluid. The spleen is normal in size measuring 8 centimeters. The pancreas and aorta are obscured by bowel gas. The visualized aspects of the IVC are grossly normal. IMPRESSION: Unremarkable study except for limited assessment of the pancreas and aorta due to bowel gas. Cholecystectomy.
[2020-09-21] MEDS: HYDRALAZINE HCL 20 MG/ML VIAL IV PRN (20:54)
[2020-09-21] MEDS: INSULIN -REGULAR HUMAN 50 UNIT/0.5 ML ML SQ SCH (20:54)
[2020-09-21] MEDS: ONDANSETRON 4 MG/2 ML VIAL IV PRN (20:54)
[2020-09-21] MEDS ORDERED: INSULIN -REGULAR HUMAN 50 UNIT/0.5 ML ML SQ SCH (21:00)
[2020-09-21] MEDS: TRAZODONE 50 MG TABLET PO PRN (21:45)
--- NOTE | 2020-09-22 01:04 | CON ---
Date of Consultation: 09/21/2020 Reason For Admission: Midepigastric pain, nausea, vomiting, diarrhea, dehydration, hypertension, and hyperglycemia. History Of Present Illness: The patient is a 54-year-old female with history of aziza betes, hypertension. The patient started to have GI symptoms of abdominal pain, nausea, vomiting juanjo k in January 2020. She had a laparoscopic cholecystectomy at that time and says her symptoms have not improved. She has lost 10 pounds over the past week due to increasing pain, nausea, vomiting, and d iarrhea. She feels dehydrated. She was in the emergency room last night with these symptoms and the n feel better and came to the hospital at the GI office and was admitted for direct admission. The p atient has also been on Effexor/Lexapro over the past couple of weeks for increasing anxiety, emotion al trauma, exhaustion. She takes trazodone at night to help her sleep. She has been to the [facility] emergency rooms as well, it appears at least once or twice over the past 6 months with the same compl aints without successful evaluation. She has had negative labs. She had a negative CT scan on August 25, 2020. She has had negative stool studies. Her evaluation continues to be unremarkable as far as tests and labs are concerned. She is diabetic with nausea, vomiting, midepigastric pain. The scar rn of gastroparesis has been entertained and she is supposed to have a gastric emptying study possibl y scheduled during this admission. She also has a history of luminal disease as per EGD sometime ove r the past 2 years at the [facility] by outside physician there. We may need to consider repea t EGD, but she should be on a PPI therapy while in the hospital on this admission. Past Medical History: Significant for diabetes, hypertension, hyperlipidemia, hysterectomy, C-sectio n, tubal ligation, anxiety disorder. Allergies: DEMEROL AND EFFEXOR. Medications: Home medicines include Plavix, Protonix, losartan, tramadol, pancreas, Lexapro, Zofran. Family History: Positive for diabetes and hypertension. Social History: , with 1 child. No tobacco. No alcohol. Review of Systems: The patient has midepigastric pain, nausea, vomiting, diarrhea, dehydration, anorexia, 10 pound weigh t loss over the past week, hyperglycemia with glucose of 255 despite minimal p.o. intake over the pas t 24 to 36 hours, hypertension in the office. Today, the patient has blood pressure of approximately 200/100 with fatigue, malaise, completely exhausted physically, mentally, and emotionally she states . She denies any melena, hematochezia, hematemesis, coffee-grounds emesis, hematuria, dysuria, polyu evelina, polydipsia, chest pain, shortness of breath, seizure, syncope, muscle aches, joint aches. She d oes have anxiety, but no recorded depression that she has seen. Her mood does seem decreased current ly. Physical Examination: Vital Signs: Temperature 98.3 degrees Fahrenheit, pulse 80, respirations 20, blood pressure 165/72 a s high as 200/100 today in the office. She is 5 feet 5 inches, 227 pounds. BMI of 37.3 kg/sq m. General: She is an obese female, lying in bed, in no acute distress. HEENT: Normocephalic, atraumatic. Anicteric. Pupils equal, round, and reactive to light. Extraocu lar movements are intact. Oropharynx is clear. Neck: Supple. No masses. Respirations: Clear to auscultation bilaterally. Cardiac: Regular rate and rhythm. No gallops or rubs. Abdomen: Positive bowel sounds. Soft, nondistended, obese. Pain in the midepigastric area. No per itoneal or Leon sign. No rebound. Some mild guarding. Extremities: No clubbing, cyanosis, or edema. 2+ pulses. Neurologic: Alert and oriented x3. Grossly nonfocal. 5/5 motor sensation, intact to light touch. Data: Today, the patient has a white count of 8.10 at 5 o'clock up from 6.10 at 12 o'clock last nigh t in the emergency room, hemoglobin 12.9, hematocrit 39.4, MCV of 83, platelet count 293, polys of 76 %, lymphocytes 17%, monocytes 7%. She has a PT of 13.5, INR of 1.17, PTT 20.7. She has a sodium 139 , potassium 3.3 up from 2.7 earlier this morning, chloride of 104, bicarb 27, BUN of 7, creatinine of 0.6, glucose of 246. Hemoglobin A1c of 10.6, is elevated. Calcium 9.2, magnesium 2.1, total biliru bin 0.6, AST of 5, ALT of 19, alkaline phosphatase 71, total protein 7.8, albumin 3.8, lipase 48. UA shows 3+ glucose, 3+ ketones, 5-10 squamous epithelial cells, 1+ mucus, trace protein, negative nitr ate, negative leukocyte esterase. She does have 3+ ketones and 3+ glucose and trace protein in her u rine, no bacteria. Acetone level negative. She had a CT of the abdomen and pelvis back on August 25 , that was unremarkable. Ultrasound of the abdomen performed today on admission with hospitalist rev ealed cholecystectomy changes, otherwise negative. Impression: 1.Midepigastric pain, nausea, vomiting, could be indicative of diabetic gastroparesis with negative imaging, CT scans, ultrasounds and other imaging at the [facility] over the past few years sinc e her cholecystectomy there at [facility] with negative labs repeatedly. She has had an EGD wi thin the past 1-2 years revealed luminal disease such as esophagitis and gastritis. She needs to be on PPI therapy during this admission and consider repeat EGD with push. We will need to rule out aziza betic gastroparesis in this diabetic patient with poorly controlled glucoses, minimal p.o. intake for over 36 hours with glucose still at 255. 2.Hyperglycemia with poorly controlled diabetes. The [facility] well as her fully controlled hypertension as well. 3.Hypertension, poorly controlled. She had a blood pressure of 200/100 in the office. The hospital ist to help adjust this. 4.Change in bowel habits, diarrhea. Could be due to her diabetes, infectious agent, or some other d isorder, not yet diagnosed. We will need to check stool studies and check serum tests for other poss ible diabetic disorders and also consider endoscopic evaluation as well. Recommendations: 1.Admit to the hospital with p.r.n. pain medicines and antiemetics. 2.Management of hypertension and hyperglycemia by the hospitalist service from Internal Medicine, [facility]. 3.Check serum test for possible etiologies of diarrhea with the celiac disease, thyroid disorder, in flammatory bowel disease, or infectious disorders. 4.Check stool studies. 5.Check gastric emptying study for possibility of diabetic gastroparesis leading to her midepigastri c pain, nausea, vomiting despite multiple procedures and imaging studies and labs that have been nega tive thus far. 6.PPI therapy in light of the patient may have luminal disorder such as gastritis, peptic ulcer dise ase, or other. Leading to the midepigastric pain, nausea, vomiting in the setting of normal labs and normal imaging studies repeatedly over the past year, status post laparoscopic cholecystectomy. 7.Consider EGD and colonoscopy in this patient with persistent midepigastric pain, nausea, vomiting, change in bowel habits, diarrhea. FERNANDO/RADHA Voice ID: [id number] Report ID: [id number]
[2020-09-22] MEDS: Ringers Lactate 1,000 ML IV SCH ×3 (03:32→23:32)
[2020-09-22] MEDS: METOPROLOL TAR 25 MG TAB PO SCH ×2 (04:12→17:38)
[2020-09-22 06:16] LABS: Absolute Lymphocytes (CBC) 2.4 K/uL (0.7-4.9); Basophils % 0.4 % (0-1.3); Hematocrit 38.1 % (36.0-45.0); Lymphocytes % 31.1 % (15.3-44.8); MPV 7.4 fL (7.6-11.3); RBC Red Blood Cell Count 4.63 M/uL (3.86-4.86)
[2020-09-22] MEDS: INSULIN -REGULAR HUMAN 50 UNIT/0.5 ML ML SQ SCH ×4 (07:30→21:00)
[2020-09-22] MEDS: PANTOPRAZOLE 40 MG INJ IVP SCH (08:20)
[2020-09-22] MEDS: HYDROMORPHONE HCL 1 MG/ML INJ IV PRN (08:20)
[2020-09-22 08:34] LABS: BUN Blood Urea Nitrogen 8 mg/dL (7-18); Bicarbonate 29 mmol/L (21-32); Glucose Level 188 mg/dL (74-106); Magnesium 2.2 mg/dL (1.8-2.4); Phosphorus 3.9 mg/dL (2.5-4.9); Potassium 3.3 mmol/L (3.5-5.1); Prealbumin 19.9 mg/dL (20-40); Sodium Level 140 mmol/L (136-145)
[2020-09-22] MEDS ORDERED: HOME MED 1 EA UNK (Losartan Potassium [Losartan Potassium] 100 MG Tablet) PO SCH (09:00)
[2020-09-22 09:26] LABS: Platelet Estimate ADEQ; White Blood Cell Scan OK (OK)
[2020-09-22 09:27] LABS: Blood Morphology Comment NOT SEEN (NOT SEEN)
[2020-09-22] MEDS: ONDANSETRON 4 MG/2 ML VIAL IV PRN (10:34)
[2020-09-22 12:24] LABS: C.diff Antigen/Toxin Ag neg : Tox neg (NEG : NEG)
[2020-09-22] MEDS: KCL 20 MEQ/100 mL IVPB 20 MEQ/100 ML BAG IV SCH ×2 (13:00→13:38)
--- NOTE | 2020-09-22 13:10 | RAD REPORT ---
EXAM DESCRIPTION: NM - Gastric Emptying Study - 09/22/2020 12:55 pm CLINICAL HISTORY: Abdominal pain/ICD K 21.9 COMPARISON: None. TECHNIQUE: The patient was administered approximately 1 mCi Tc 99m sulfur colloid in solid egg meal. Imaging of the left upper quadrant was performed with time/activity curve generated. FINDINGS: The half-time gastric emptying equals 44 minutes. Normal value(45 minutes to 110 minutes ) Lag phase duration 21 minutes Retention at 120 minutes = 0 % IMPRESSION: Rapidgastric empying
[2020-09-22] MEDS ORDERED: NA CHLORIDE 0.9% 200 ML ONE (13:28)
[2020-09-22] MEDS: LOSARTAN POTASSIUM 50 MG TABLET PO SCH (13:37)
--- NOTE | 2020-09-22 14:04 | P.PN ---
Subjective Date of Service: 09/22/20 Primary Care Provider: Dr. Khan; GI-Dr. Schmitt Chief Complaint: Nausea, vomiting, diarrhea Subjective: Improving (Less nausea or vomiting) Physical Examination - Vital Signs Temperature: 97.5 F Blood Pressure: 129/66 Pulse: 57 Respirations: 18 Pulse Ox (%): 99 - Studies Laboratory Data (last 24 hrs) 09/22/20 05:41: WBC 7.70, Hgb 12.6, Hct 38.1, Plt Count 280 09/22/20 05:41: Sodium 140, Potassium 3.3 L, BUN 8, Creatinine 0.63, Glucose 188 H, Phosphorus 3.9, Magnesium 2.2 09/21/20 17:01: Lipase 45 L 09/21/20 17:01: PT 13.5 H, INR 1.17, APTT 20.7 L 09/21/20 17:01: Sodium 139, Potassium 3.3 L, BUN 7, Creatinine 0.62, Glucose 246 H, Magnesium 2.1, Total Bilirubin 0.6, AST 5 L, ALT 19, Alkaline Phosphatase 71 09/21/20 17:01: WBC 8.10 D, Hgb 12.9, Hct 39.4, Plt Count 293 Microbiology Data (last 24 hrs): 09/21/20 21:30 Stool Fecal Leukocyte Stain - Final 09/21/20 17:01 Blood - Blood Anaerobic Blood Culture - Final Assessment & Plan Discharge Plan: Home Plan to discharge in: 24 Hours Physician Review Additional Text: Physical Exam: Patient alert, cooperative. No distress noted. H: Regular rate L: Clear to auscultation. GI: Soft, minimal pain to the epigastric region EXT: GROM Impression: Nausea, vomiting, epigastric pain and diarrhea with dehydration Diabetes mellitus type 2 with hyperglycemia Hypertension uncontrolled GERD Depression with anxiety Plan: Nausea, vomiting, epigastric pain and diarrhea with dehydration: Gastric test shows fast emptying. GI plans for EGD. Await findings. Continue with Protonix. Etiology gastritis/esophagitis versus other. Anticipate improvement over the next 24 to 48 hours. Diabetes mellitus type 2 with hyperglycemia: Continue with sliding scale. A1c10.6. Will start basal insulin once able to take oral intake. Hypertension uncontrolled: Continue with losartan and metoprolol. BP better controlled. GERD: Continue Protonix. Await EGD. Depression with anxiety: Will continue to hold Lexapro and Trazodone Will provide medication for anxiety. Time Spent Managing Pts Care (In Minutes): 55
[2020-09-22] MEDS: ENOXAPARIN 40 MG/0.4 ML SQ SCH (17:37)
[2020-09-22 18:40] VITALS: BMI 36.8
[2020-09-23] MEDS: HYDROMORPHONE HCL 1 MG/ML INJ IV PRN ×3 (03:59→23:08)
[2020-09-23] MEDS: METOPROLOL TAR 25 MG TAB PO SCH ×2 (05:50→17:33)
[2020-09-23] MEDS: INSULIN -REGULAR HUMAN 50 UNIT/0.5 ML ML SQ SCH ×4 (07:30→20:16)
[2020-09-23] MEDS: PANTOPRAZOLE 40 MG INJ IVP SCH (07:57)
[2020-09-23] MEDS: Ringers Lactate 1,000 ML IV SCH ×4 (09:00→23:09)
[2020-09-23] MEDS: LOSARTAN POTASSIUM 50 MG TABLET PO SCH (09:00)
--- NOTE | 2020-09-23 10:33 | P.DS ---
Admission Date: 09/21/20 Discharge Date: 09/23/20 Primary Care Provider: Dr. Khan; GI-Dr. Schmitt Disposition: ROUTINE DISCHARGE Discharge Condition: GOOD Reason for Admission: Nausea, vomiting, diarrhea Consultations: GI-Dr. Schmitt Procedures: COVID: Negative Gastric emptying test: COMPARISON: None. TECHNIQUE: The patient was administered approximately 1 mCi Tc 99m sulfur colloid in solid egg meal. Imaging of the left upper quadrant was performed with time/activity curve generated. FINDINGS: The half-time gastric emptying equals 44 minutes. Normal value(45 minutes to 110 minutes ) Lag phase duration 21 minutes Retention at 120 minutes = 0 % IMPRESSION: Rapidgastric empying ABUS: FINDINGS: The liver is normal in size, shape and echotexture. No focal liver lesions or intrahepatic biliary dilatation is seen. Cholecystectomy. Common bile duct is normal in caliber measuring 5 millimeters. Both kidneys are normal in size, shape and echotexture. No hydronephrosis, focal lesion of concern or perinephric fluid. The spleen is normal in size measuring 8 centimeters. The pancreas and aorta are obscured by bowel gas. The visualized aspects of the IVC are grossly normal. IMPRESSION: Unremarkable study except for limited assessment of the pancreas and aorta due to bowel gas. Cholecystectomy. KUB: COMPARISON: No comparisons FINDINGS: The bowel gas pattern is non-obstructive. No evidence of free air or pneumatosis. No suspicious calcifications. No significant bony findings. Cholecystectomy clips. IMPRESSION: Negative examination. Medical Problem List: Nausea, vomiting, epigastric pain and diarrhea with dehydration suspect GERD Diabetes mellitus type 2 with hyperglycemia Hypertension uncontrolled Depression with anxiety Brief History of Present Illness: 54-year-old -[place] female with history of PVD, depression, hypertension and diabetes. Patient is a direct admit from GI. GI reports patient had nausea, vomiting, diarrhea and abdominal pain. Patient was actually seen in the emergency room last night. Her symptoms have not improved. Patient reports that her symptoms began January 2020 after she had a cholecystectomy. She reports since that time she has been having constant diarrhea. Diarrhea is watery and bilious in nature. Some mucus noted. She reports 10 pound weight loss since that time. She has bouts of nausea, vomiting. Recently she had epigastric pain. She reports having a foul taste to her mouth. Symptoms are not improved. As of most recent Lexapro was started about 2 weeks ago for increased anxiety. She also had her trazodone increased to 100 mg daily. She denies any fever, chills noted. She was a direct admit for further evaluation. Lab pending at this time. She takes losartan 100 mg for hypertension. She is not been able to take anything for diabetes as she has been tried on long-acting insulin with increased nausea and vomiting. Hospital Course: Patient was a direct admit due to nausea, vomiting and epigastric pain. Patient also had reported some chronic diarrhea. Patient appeared dehydrated upon admission. Patient was seen and evaluated by GI. Gastric test showed fast emptying. KUB unremarkable. Abdominal ultrasound unremarkable. Patient with prior cholecystectomy. Patient did well in the course of her stay. EGD was planned but this was changed to be done as an outpatient. At discharge gastritis is suspected. Work-up for celiac disease in progress. C. difficile negative. At discharge the patient will go to GI center for EGD. At discharge patient will continue with Protonix 40 mg daily. This will be increased from her prior dose. Await further recommendations from GI. Patient will follow up with GI on celiac disease work-up. This will be done as an outpatient. Patient also has diabetes mellitus type 2 with hyperglycemia. Hemoglobin A1c 10.6. Patient had been on Tresiba and Metformin in the past with some difficulty taking medication. Patient is to see endocrinology here soon. Blood sugars remained stable during the course of her stay. Patient received insulin sliding scale. At discharge will recommend to start Lantus Solostar 5 units at bedtime. Recommend to monitor blood sugars at least twice daily. Recommend to maintain blood sugar less than 140 fasting and less than 200. Patient may increase Lantus by 2 to 3 units if blood sugar remains above 200. Recommend follow-up with endocrinology in the next 1 to 2 weeks to further monitor and adjust medication. Patient with hypertension. This was uncontrolled. Patient takes losartan. Metformin was added for better control. Blood pressure now stable. At discharge patient will continue with losartan 100 mg daily and metoprolol 25 mg 1 pill twice daily. Recommend to maintain blood pressure less than 130/80. Further adjustment can be done by her PCP. Patient with depression with anxiety. At discharge patient will continue with Lexapro 10 mg daily and trazodone 100 mg at bedtime. Vital Signs/Physical Exam: Temp Pulse Resp BP Pulse Ox 98.3 F 68 16 169/75 H 93 03//21 08:00 09/23/20 08:00 09/23/20 08:00 09/23/20 08:00 09/23/20 08:00 General: Alert, In no apparent distress, Oriented x3, Cooperative HEENT: Atraumatic Neck: Supple Respiratory: Clear to auscultation bilaterally, Normal air movement Cardiovascular: Normal pulses, Regular rate/rhythm Gastrointestinal: Normal bowel sounds, Soft and benign, Non-distended, No masses, No rebound, No guarding, Tenderness (Minimal pain to the epigastric region) Integumentary: No tenderness/swelling, No erythema, No warmth, No cyanosis Neurological: Normal speech, Normal strength at 5/5 x4 extr, Normal tone, Normal affect Laboratory Data at Discharge: WBC 7.70 K/uL (4.3-10.9) 09/22/20 05:41 Hgb 12.6 g/dL (12.0-15.0) 09/22/20 05:41 Hct 38.1 % (36.0-45.0) 09/22/20 05:41 Plt Count 280 K/uL (152-406) 09/22/20 05:41 PT 13.5 SECONDS (9.5-12.5) H 09/21/20 17:01 INR 1.17 09/21/20 17:01 APTT 20.7 SECONDS (24.3-36.9) L 09/21/20 17:01 Sodium 140 mmol/L (136-145) 09/22/20 05:41 Potassium 3.3 mmol/L (3.5-5.1) L 09/22/20 05:41 BUN 8 mg/dL (7-18) 09/22/20 05:41 Creatinine 0.63 mg/dL (0.55-1.3) 09/22/20 05:41 Glucose 188 mg/dL (74-106) H 09/22/20 05:41 Phosphorus 3.9 mg/dL (2.5-4.9) 09/22/20 05:41 Magnesium 2.2 mg/dL (1.8-2.4) 09/22/20 05:41 Total Bilirubin 0.6 mg/dL (0.2-1.0) 09/21/20 17:01 AST 5 U/L (15-37) L 09/21/20 17:01 ALT 19 U/L (12-78) 09/21/20 17:01 Alkaline Phosphatase 71 U/L (45-117) 09/21/20 17:01 Lipase 45 U/L (73-393) L 09/21/20 17:01 Home Medications: Clopidogrel Bisulfate [Plavix*] 75 mg PO DAILY 09/21/20 Escitalopram Oxalate [Lexapro] 10 mg PO DAILY 09/21/20 Losartan Potassium 100 mg PO DAILY 09/21/20 Trazodone HCl 100 mg PO BEDTIME 09/21/20 Insulin Glargine,Hum.rec.anlog [Lantus Solostar] 5 unit SQ BEDTIME #1 packet 09/23/20 Lactobacillus Acidophilus [Acidophilus Lactobacilli] 1 each PO TID #90 capsule 09/23/20 Metoprolol Tartrate [Lopressor*] 25 mg PO BID 6AM 6PM #60 tab 09/23/20 Pantoprazole [Protonix Tab] 40 mg PO DAILY #30 tab 09/23/20 New Medications: Lactobacillus Acidophilus [Acidophilus Lactobacilli] 1 each PO TID #90 capsule Insulin Glargine,Hum.rec.anlog [Lantus Solostar] 5 unit SQ BEDTIME #1 packet Metoprolol Tartrate [Lopressor*] 25 mg PO BID 6AM 6PM #60 tab Pantoprazole [Protonix Tab] 40 mg PO DAILY #30 tab Physician Discharge Instructions: Patient was a direct admit due to nausea, vomiting and epigastric pain. Patient also had reported some chronic diarrhea. Patient appeared dehydrated upon admission. Patient was seen and evaluated by GI. Gastric test showed fast emptying. KUB unremarkable. Abdominal ultrasound unremarkable. Patient with prior cholecystectomy. Patient did well in the course of her stay. EGD was planned but this was changed to be done as an outpatient. At discharge gastritis is suspected. Work-up for celiac disease in progress. C. difficile negative. At discharge the patient will go to GI center for EGD. At discharge patient will continue with Protonix 40 mg daily. This will be increased from her prior dose. Await further recommendations from GI. Patient will follow up with GI on celiac disease work-up. This will be done as an outpatient. Patient also has diabetes mellitus type 2 with hyperglycemia. Hemoglobin A1c 10.6. Patient had been on Tresiba and Metformin in the past with some difficulty taking medication. Patient is to see endocrinology here soon. Blood sugars remained stable during the course of her stay. Patient received insulin sliding scale. At discharge will recommend to start Lantus Solostar 5 units at bedtime. Recommend to monitor blood sugars at least twice daily. Recommend to maintain blood sugar less than 140 fasting and less than 200. Patient may increase Lantus by 2 to 3 units if blood sugar remains above 200. Recommend follow-up with endocrinology in the next 1 to 2 weeks to further monitor and adjust medication. Patient with hypertension. This was uncontrolled. Patient takes losartan. Metformin was added for better control. Blood pressure now stable. At discharge patient will continue with losartan 100 mg daily and metoprolol 25 mg 1 pill twice daily. Recommend to maintain blood pressure less than 130/80. Further adjustment can be done by her PCP. Patient with depression with anxiety. At discharge patient will continue with Lexapro 10 mg daily and trazodone 100 mg at bedtime. Diet: ADA Activity: Ad merced Time spent managing pt's care (in minutes): 55
[2020-09-23] MEDS ORDERED: propofoL 200 MG/20 ML VIAL IV ONE (10:55)
[2020-09-23] MEDS ORDERED: LIDOCAINE 1% MPF 5 ML VIAL ONE (10:56)
[2020-09-23] MEDS ORDERED: NA CHLORIDE 0.9% 500 ML ONE (11:01)
--- NOTE | 2020-09-23 12:03 | ENDO RPT ---
[address], [address] EGD PROCEDURE REPORT EXAM DATE: 09/23/2020 PATIENT NAME: Kerry Sanford MR#: [id number] BIRTHDATE: 1965 ATTENDING: Henrique Schmitt Dr STATUS: inpatient - 7 [employer]CISION [employer] TECHNICIAN: Elise Crook RN and Reina Holguin CST INDICATIONS: The patient is a 54 yr old Female here for an EGD due to mid epigastric abdominal pain, nausea and vomiting, and chronic unexplained diarrhea PROCEDURE PERFORMED: EGD with biopsy MEDICATIONS: Per Anesthesia. TOPICAL ANESTHETIC: none CONSENT: The patient understands the risks and benefits of the procedure and understands that these risks include, but are not limited to: sedation, allergic reaction, infection, perforation and/or bleeding. Alternative means of evaluation and treatment include, among others: physical exam, x-rays, and/or surgical intervention. The patient elects to proceed with this endoscopic procedure. DESCRIPTION OF PROCEDURE: During intra-op preparation period all mechanical medical equipment was checked for proper function. Hand hygiene and appropriate measures for infection prevention was taken. Procedure, possible complications, and alternatives including but not limited to the possibility of bleeding, perforation, tear, infection, sepsis, need for surgery, need for blood transfusion, and anesthesia related complications were explained to the patient. After the risks, benefits and alternatives of the procedure were thoroughly explained, Informed consent was verified, confirmed and timeout was successfully executed by the treatment team. The patient was placed in the left lateral position. The patient was anesthetized with topical anesthesia. Through the anesthetized oropharyngeal area, the scope was passed without any difficulty. The [id number] ([id number]) endoscope was introduced through the mouth and advanced to the third portion of the duodenum. Retroflexed views revealed a small hiatal hernia. The gastroscope was then slowly withdrawn and removed. A small hiatal hernia was found. Moderate gastritis was found in the total stomach and severe in the body of the stomach, s/p biopsies. Small bowel biopsies obtained with history of chronic unexplained diarrhea. ADVERSE EVENTS: There were no complications. IMPRESSIONS: 1. Small hiatal hernia 2. Moderate gastritis in the total stomach and severe in the body of the stomach, s/p biopsies 3. Small bowel biopsies obtained with history of chronic unexplained diarrhea RECOMMENDATIONS: 1. await biopsy results 2. acid suppression therapy REPEAT EXAM: Henrique Schmitt Dr eSigned: Henrique Schmitt Dr 09/23/2020 12:03 PM cc: Jonny Greenwood D.O. CPT CODES: ICD9 CODES: PATIENT NAME: Kerry Sanford MR#: [id number]
--- NOTE | 2020-09-23 12:18 | P.PN ---
Subjective Date of Service: 09/22/20 Primary Care Provider: Dr. Khna; GI-Dr. Schmitt Chief Complaint: MASSIMO pain, nausea, vomiting, diarrhea Subjective: Improving (Tolerating some CLs and decreased pain. Gastric emptying study revealed rapid gastric emptying.) Review of Systems 10-point ROS is otherwise unremarkable General: Weakness, Malaise Gastrointestinal: Nausea, Vomiting, Abdominal Pain, Diarrhea Neurological: Weakness Physical Examination - Vital Signs Temperature: 97.1 F Blood Pressure: 155/73 Pulse: 75 Respirations: 16 Pulse Ox (%): 93 - Physical Exam General: Alert, Oriented x3, Cooperative, Mild distress HEENT: Atraumatic, Normocephalic, PERRLA, EOMI Neck: Supple Respiratory: Diminished Cardiovascular: Normal pulses Gastrointestinal: No masses, No rebound, No guarding, Other (obese), Tenderness (MASSIMO mild) Neurological: Normal speech, Normal strength at 5/5 x4 extr - Studies Microbiology Data (last 24 hrs): 09/21/20 17:01 Blood - Blood Anaerobic Blood Culture - Final Assessment And Plan - Current Problems (Diagnosis) (1) Epigastric abdominal pain Current Visit: Yes Status: Acute (2) Nausea & vomiting Current Visit: Yes Status: Acute (3) Change in bowel habits Current Visit: Yes Status: Acute (4) Diarrhea Current Visit: Yes Status: Acute (5) Dehydration Current Visit: Yes Status: Acute (6) Fatigue Current Visit: Yes Status: Acute - Plan REC: 1) continue PPI therapy 2) EGD Physician Review Additional Text: Physical Exam: Patient alert, cooperative. No distress noted. H: Regular rate L: Clear to auscultation. GI: Soft, minimal pain to the epigastric region EXT: GROM Impression: Nausea, vomiting, epigastric pain and diarrhea with dehydration Diabetes mellitus type 2 with hyperglycemia Hypertension uncontrolled GERD Depression with anxiety Plan: Nausea, vomiting, epigastric pain and diarrhea with dehydration: Gastric test shows fast emptying. GI plans for EGD. Await findings. Continue with Protonix. Etiology gastritis/esophagitis versus other. Anticipate improvement over the next 24 to 48 hours. Diabetes mellitus type 2 with hyperglycemia: Continue with sliding scale. A1c10.6. Will start basal insulin once able to take oral intake. Hypertension uncontrolled: Continue with losartan and metoprolol. BP better controlled. GERD: Continue Protonix. Await EGD. Depression with anxiety: Will continue to hold Lexapro and Trazodone Will provide medication for anxiety.
[2020-09-23] MEDS: FENTANYL CITR 100 MCG/2 ML ONE ×2 (12:29→12:37)
[2020-09-23] MEDS: ONDANSETRON 4 MG/2 ML VIAL IV PRN ×2 (14:20→23:26)
[2020-09-23] MEDS: ENOXAPARIN 40 MG/0.4 ML SQ SCH (16:46)
--- NOTE | 2020-09-23 17:03 | EKG ---
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
[2020-09-23] MEDS: TRAZODONE 50 MG TABLET PO PRN (23:08)
[2020-09-23] MEDS: HYDRALAZINE HCL 20 MG/ML VIAL IV PRN (23:18)
[2020-09-24] MEDS: Ringers Lactate 1,000 ML IV SCH ×2 (05:00→12:09)
[2020-09-24] MEDS: METOPROLOL TAR 25 MG TAB PO SCH ×2 (06:09→16:22)
[2020-09-24] MEDS: INSULIN -REGULAR HUMAN 50 UNIT/0.5 ML ML SQ SCH ×3 (07:30→16:21)
--- NOTE | 2020-09-24 07:42 | P.DS ---
Admission Date: 09/21/20 Discharge Date: 09/24/20 Primary Care Provider: Dr. Khan; GI-Dr. Schmitt Disposition: ROUTINE DISCHARGE Discharge Condition: GOOD Reason for Admission: MASSIMO pain, nausea, vomiting, diarrhea Consultations: GI-Dr. Schmitt Procedures: Procedures: EGD: showed hiatal hernia. Moderate gastritis to the total stomach and Severe gastritis to the body of the stomach. Biopsies obtained. COVID: Negative Gastric emptying test: COMPARISON: None. TECHNIQUE: The patient was administered approximately 1 mCi Tc 99m sulfur colloid in solid egg meal. Imaging of the left upper quadrant was performed with time/activity curve generated. FINDINGS: The half-time gastric emptying equals 44 minutes. Normal value(45 minutes to 110 minutes ) Lag phase duration 21 minutes Retention at 120 minutes = 0 % IMPRESSION: Rapidgastric empying ABUS: FINDINGS: The liver is normal in size, shape and echotexture. No focal liver lesions or intrahepatic biliary dilatation is seen. Cholecystectomy. Common bile duct is normal in caliber measuring 5 millimeters. Both kidneys are normal in size, shape and echotexture. No hydronephrosis, focal lesion of concern or perinephric fluid. The spleen is normal in size measuring 8 centimeters. The pancreas and aorta are obscured by bowel gas. The visualized aspects of the IVC are grossly normal. IMPRESSION: Unremarkable study except for limited assessment of the pancreas and aorta due to bowel gas. Cholecystectomy. KUB: COMPARISON: No comparisons FINDINGS: The bowel gas pattern is non-obstructive. No evidence of free air or pneumatosis. No suspicious calcifications. No significant bony findings. Cholecystectomy clips. IMPRESSION: Negative examination. Medical Problem List: Nausea, vomiting, epigastric pain and diarrhea with dehydration secondary to hiatal hernia with moderate gastritis to the total stomach and severe gastritis of the body of the stomach Diabetes mellitus type 2 with hyperglycemia Hypertension uncontrolled Depression with anxiety Brief History of Present Illness: 54-year-old -[place] female with history of PVD, depression, hypertens ion and diabetes. Patient is a direct admit from GI. GI reports patient had nausea, vomiting, diarrhea and abdominal pain. Patient was actually seen in the emergency room last night. Her symptoms have not improved. Patient reports that her symptoms began January 2020 after she had a cholecystectomy. She reports since that time she has been having constant diarrhea. Diarrhea is watery and bilious in nature. Some mucus noted. She reports 10 pound weight loss since that time. She has bouts of nausea, vomiting. Recently she had epigastric pain. She reports having a foul taste to her mouth. Symptoms are not improved. As of most recent Lexapro was started about 2 weeks ago for increased anxiety. She also had her trazodone increased to 100 mg daily. She denies any fever, chills noted. She was a direct admit for further evaluation. Lab pending at this time. She takes losartan 100 mg for hypertension. She is not been able to take anything for diabetes as she has been tried on long-acting insulin with increased nausea and vomiting. Hospital Course: Patient was a direct admit due to nausea, vomiting and epigastric pain. Patient also had reported some chronic diarrhea. Patient appeared dehydrated upon admission. Patient was seen and evaluated by GI. Gastric test showed fast emptying. KUB unremarkable. Abdominal ultrasound unremarkable. Patient with prior cholecystectomy. EGD was able to be performed. EGD showed small hiatal hernia, moderate gastritis to the total of the stomach and severe gastritis to the body of the stomach. Biopsies were obtained. Her diet was advanced. Patient was finally able to tolerate diet without the need for IV medication. Work-up for celiac disease in progress and pending at discharge. C. difficile negative. At discharge patient will continue with Protonix 40 mg daily at home. GERD, hiatal hernia education and diet provided. Recommend follow-up with GI to go over biopsy report and work-up for celiac disease. Patient also has diabetes mellitus type 2 with hyperglycemia. Hemoglobin A1c 10.6. Patient had been on Tresiba and Metformin in the past with some difficulty taking medication. Patient is to see endocrinology here soon. Blood sugars remained stable during the course of her stay. Patient received insulin sliding scale. At discharge will recommend to start Lantus Solostar 5 units at bedtime. Recommend to monitor blood sugars at least twice daily. Recommend to maintain blood sugar less than 140 fasting and less than 200. Patient may increase Lantus by 2 to 3 units if blood sugar remains above 200. Recommend follow-up with endocrinology in the next 1 to 2 weeks to further monitor and adjust medication. Patient with hypertension. This was uncontrolled. Patient takes losartan. Metformin was added for better control. Blood pressure now stable. At discharge patient will continue with losartan 100 mg daily and metoprolol 25 mg 1 pill twice daily. Recommend to maintain blood pressure less than 130/80. Further adjustment can be done by her PCP. Patient with depression with anxiety. At discharge patient will continue with Lexapro 10 mg daily and trazodone 100 mg at bedtime. Vital Signs/Physical Exam: Temp Pulse Resp BP Pulse Ox 97.8 F 84 17 140/60 97 09/24/20 04:00 09/24/20 06:09 09/24/20 04:00 09/24/20 06:09 09/24/20 04:00 General: Alert, In no apparent distress, Oriented x3, Cooperative HEENT: Atraumatic Neck: Supple Respiratory: Clear to auscultation bilaterally, Normal air movement Cardiovascular: Normal pulses, Regular rate/rhythm Gastrointestinal: Normal bowel sounds, Soft and benign, Non-distended, No tenderness, No masses, No rebound, No guarding Musculoskeletal: No erythema, No tenderness, No warmth Integumentary: No tenderness/swelling, No erythema, No warmth, No cyanosis Neurological: Normal speech, Normal strength at 5/5 x4 extr, Normal tone, Normal affect Laboratory Data at Discharge: WBC 7.70 K/uL (4.3-10.9) 09/22/20 05:41 Hgb 12.6 g/dL (12.0-15.0) 09/22/20 05:41 Hct 38.1 % (36.0-45.0) 09/22/20 05:41 Plt Count 280 K/uL (152-406) 09/22/20 05:41 PT 13.5 SECONDS (9.5-12.5) H 09/21/20 17:01 INR 1.17 09/21/20 17:01 APTT 20.7 SECONDS (24.3-36.9) L 09/21/20 17:01 Sodium 140 mmol/L (136-145) 09/22/20 05:41 Potassium 3.3 mmol/L (3.5-5.1) L 09/22/20 05:41 BUN 8 mg/dL (7-18) 09/22/20 05:41 Creatinine 0.63 mg/dL (0.55-1.3) 09/22/20 05:41 Glucose 188 mg/dL (74-106) H 09/22/20 05:41 Phosphorus 3.9 mg/dL (2.5-4.9) 09/22/20 05:41 Magnesium 2.2 mg/dL (1.8-2.4) 09/22/20 05:41 Total Bilirubin 0.6 mg/dL (0.2-1.0) 09/21/20 17:01 AST 5 U/L (15-37) L 09/21/20 17:01 ALT 19 U/L (12-78) 09/21/20 17:01 Alkaline Phosphatase 71 U/L (45-117) 09/21/20 17:01 Lipase 45 U/L (73-393) L 09/21/20 17:01 Home Medications: Clopidogrel Bisulfate [Plavix*] 75 mg PO DAILY 09/21/20 Escitalopram Oxalate [Lexapro] 10 mg PO DAILY 09/21/20 Losartan Potassium 100 mg PO DAILY 09/21/20 Trazodone HCl 100 mg PO BEDTIME 09/21/20 Insulin Glargine,Hum.rec.anlog [Lantus Solostar] 5 unit SQ BEDTIME #1 packet 09/23/20 Lactobacillus Acidophilus [Acidophilus Lactobacilli] 1 each PO TID #90 capsule 09/23/20 Metoprolol Tartrate [Lopressor*] 25 mg PO BID 6AM 6PM #60 tab 09/23/20 Pantoprazole [Protonix Tab] 40 mg PO DAILY #30 tab 09/23/20 New Medications: Lactobacillus Acidophilus [Acidophilus Lactobacilli] 1 each PO TID #90 capsule Insulin Glargine,Hum.rec.anlog [Lantus Solostar] 5 unit SQ BEDTIME #1 packet Metoprolol Tartrate [Lopressor*] 25 mg PO BID 6AM 6PM #60 tab Pantoprazole [Protonix Tab] 40 mg PO DAILY #30 tab Physician Discharge Instructions: Patient was a direct admit due to nausea, vomiting and epigastric pain. Patient also had reported some chronic diarrhea. Patient appeared dehydrated upon admission. Patient was seen and evaluated by GI. Gastric test showed fast emptying. KUB unremarkable. Abdominal ultrasound unremarkable. Patient with prior cholecystectomy. EGD was able to be performed. EGD showed small hiatal hernia, moderate gastritis to the total of the stomach and severe gastritis to the body of the stomach. Biopsies were obtained. Her diet was advanced. Patient was finally able to tolerate diet without the need for IV medication. Work-up for celiac disease in progress and pending at discharge. C. difficile negative. At discharge patient will continue with Protonix 40 mg daily at home. GERD, hiatal hernia education and diet provided. Recommend follow-up with GI to go over biopsy report and work-up for celiac disease. Patient also has diabetes mellitus type 2 with hyperglycemia. Hemoglobin A1c 10.6. Patient had been on Tresiba and Metformin in the past with some difficulty taking medication. Patient is to see endocrinology here soon. Blood sugars remained stable during the course of her stay. Patient received insulin sliding scale. At discharge will recommend to start Lantus Solostar 5 units at bedtime. Recommend to monitor blood sugars at least twice daily. Recommend to maintain blood sugar less than 140 fasting and less than 200. Patient may increase Lantus by 2 to 3 units if blood sugar remains above 200. Recommend follow-up with endocrinology in the next 1 to 2 weeks to further monitor and adjust medication. Patient with hypertension. This was uncontrolled. Patient takes losartan. Metformin was added for better control. Blood pressure now stable. At discharge patient will continue with losartan 100 mg daily and metoprolol 25 mg 1 pill twice daily. Recommend to maintain blood pressure less than 130/80. Further adjustment can be done by her PCP. Patient with depression with anxiety. At discharge patient will continue with Lexapro 10 mg daily and trazodone 100 mg at bedtime. Diet: ADA Activity: Ad mreced Time spent managing pt's care (in minutes): 55
[2020-09-24] MEDS: LOSARTAN POTASSIUM 50 MG TABLET PO SCH (07:44)
[2020-09-24] MEDS: PANTOPRAZOLE 40 MG INJ IVP SCH (07:45)
[2020-09-24 07:53] VITALS: O2SAT 95
[2020-09-24] MEDS: ENOXAPARIN 40 MG/0.4 ML SQ SCH (16:22)
[2020-09-24 16:23] VITALS: BP 158/73
[2020-09-24 17:13] VITALS: TEMP 97.3
[2020-09-24] MEDS: HYDROMORPHONE HCL 1 MG/ML INJ IV PRN (17:58)
[2020-09-24] MEDS ORDERED: SUCRALFATE 1 GM TABLET PO SCH (21:00)
[2020-10-01 17:03] LABS: Immunoglobulin A 160 mg/dL (47-310); Tissue Transglutaminase IgA Ab 1 U/mL (<4)
== END 2020-09-24 19:33 | disposition home or self-care (01) | DRG 392 ==
LOC: INTOOBSV 15:55 → OBSVTOIN 15:55 → 2ND 15:55
PROVIDERS: ADMIT Family Medicine; ATTEND Family Medicine
PROC: 0DB68ZX Excision of Stomach, Via Natural or Artificial Opening Endoscopic, Diagnostic (ICD-10-PCS; principal; 2020-09-23 12:15)
DX: K29.70 Gastritis, unspecified, without bleeding (principal); K44.9 Diaphragmatic hernia without obstruction or gangrene; K21.9 Gastro-esophageal reflux disease without esophagitis; E86.0 Dehydration; E11.65 Type 2 diabetes mellitus with hyperglycemia; F41.8 Other specified anxiety disorders; K52.9 Noninfective gastroenteritis and colitis, unspecified; I10 Essential (primary) hypertension; E78.5 Hyperlipidemia, unspecified; Z88.5 Allergy status to narcotic agent; Z88.8 Allergy status to other drugs, medicaments and biological substances; Z79.899 Other long term (current) drug therapy; Z79.02 Long term (current) use of antithrombotics/antiplatelets; Z90.49 Acquired absence of other specified parts of digestive tract; Z98.51 Tubal ligation status; Z90.710 Acquired absence of both cervix and uterus; Z79.4 Long term (current) use of insulin
CPT/HCPCS: 36415; 74018; 76700; 78264; 80048; 80053; 81003; 81015; 82784; 82947; 83036; 83516; 83690; 83735; 84100; 84134; 84439; 84443; 85025; 85610; 85730; 87040; 87045; 87046; 87077; 87177; 87186; 87209; 87324; 87449; 88305; 88312; 89055; 93005; A9541; C9113; J0360; J1170; J1650; J2405; J2704; J3010; J3480; J7040; J7120

== ENCOUNTER 2020-11-29 19:40 | Inpatient (IN) | payer OTHER ==
--- OUTSIDE RECORDS SUMMARY | 2020-11-29 19:43 | XMS REPORT | Continuity of Care Document ---
:[address] [facility] t Address [address] [place] [address] Care Team Providers Name Role Phone Huma Khan MD Attending Clinician Doctor Unassigned, Name Attending Clinician Unavailable Problems Condition Condition Condition Status Onset Resolution Last Treating Co mments Source Name Details Category Date Date Treatment Clinician Date Type 2 Type 2 Problem Active [facility] diabetes Diabetes 4-05 Family mellitus Mellitus 00:00: Practi c 00 e Allergies, Adverse Reactions, Alerts This patient has no known allergies or adverse reactions. Social History Smoking Status Start Date Stop Date Source Never Smoker [facility] Medications Ordered Filled Start Stop Current Ordering Indication Dosage Frequency Signature Comments Components Source Medication Medication Date Date Medication? Clinician (SIG) Name Name dicyclomine dicyclomine No dicyclomin [facility] 20 mg 20 mg e 20 mg Family tablet TAKE tablet TAKE tablet Practic 1 TABLET BY 1 TABLET BY TAKE 1 e MOUTH ONCE MOUTH ONCE TABLET BY DAILY FOR DAILY FOR MOUTH ONCE 14 DAYS 14 DAYS DAILY FOR 14 DAYS escitalopra escitalopra No escitalopr [facility] m 5 mg m 5 mg am 5 mg Family tablet TAKE tablet TAKE tablet [facility] 1 TABLET BY 1 TABLET BY TAKE 1 e MOUTH ONCE MOUTH ONCE TABLET BY DAILY FOR 7 DAILY FOR 7 MOUTH ONCE DAYS IF NO DAYS IF NO DAILY FOR SIDE SIDE 7 DAYS IF EFFECTS EFFECTS NO SIDE INCREASE TO INCREASE TO EFFECTS 2 TABLETS 2 TABLETS INCREASE EVERY EVERY TO 2 MORNING MORNING TABLETS EVERY MORNING Farxiga 10 Farxiga 10 No 1 Q1D Farxiga 10 [place] mg tablet mg tablet mg tablet Family Take 1 Take 1 Take 1 Practic tablet tablet tablet e every day every day every day by oral by oral by oral route in route in route in the the the morning. morning. morning. fluconazole fluconazole No fluconazol [facility] 150 mg 150 mg e 150 mg Family tablet TAKE tablet TAKE tablet [facility] 1 TABLET BY 1 TABLET BY TAKE 1 e MOUTH A MOUTH A TABLET BY ONE TIME ONE TIME MOUTH A DOSE DOSE ONE TIME DOSE hydrocodone hydrocodone No hydrocodon [facility] 10 10 e 10 Family mg-acetamin mg-acetamin mg-acetami Pract[facility] ophen 325 ophen 325 nophen 325 e mg tablet mg tablet mg tablet TAKE 1 TAKE 1 TAKE 1 TABLET BY TABLET BY TABLET BY MOUTH 4 MOUTH 4 MOUTH 4 TIMES A DAY TIMES A DAY TIMES A NEEDED NEEDED DAY FOR PAIN FOR PAIN NEEDED FOR PAIN Lactinex 1 Lactinex 1 No Lactinex 1 [facility] million million million Family cell cell cell Practic chewable chewable chewable e tablet tablet tablet losartan losartan No losartan [place] 100 mg 100 mg 100 mg Family tablet TAKE tablet TAKE tablet [facility] 1 TABLET BY 1 TABLET BY TAKE 1 e MOUTH ONCE MOUTH ONCE TABLET BY DAILY FOR DAILY FOR MOUTH ONCE 90 DAYS 90 DAYS DAILY FOR 90 DAYS losartan 50 losartan 50 No losartan [facility] mg tablet mg tablet 50 mg Fami ly TAKE 1 TAKE 1 tablet Practic TABLET BY TABLET BY TAKE 1 e MOUTH ONCE MOUTH ONCE TABLET BY DAILY FOR DAILY FOR MOUTH ONCE 90 DAYS 90 DAYS DAILY FOR 90 DAYS meloxicam meloxicam No meloxicam [facility] 15 mg 15 mg 15 mg Family tablet TAKE tablet TAKE tablet Practic 1 TABLET BY 1 TABLET BY TAKE 1 e MOUTH ONCE MOUTH ONCE TABLET BY DAILY DAILY MOUTH ONCE NEEDED NEEDED DAILY NEEDED metformin metformin No 1 BID metformin [facility] ER 500 mg ER 500 mg ER 500 mg [facility] 24 hr 24 hr 24 hr Practic tablet,exte tablet,exte tablet,ext e nded nded ended release release release Take 1 Take 1 Take 1 tablet tablet tablet twice a day twice a day twice a by oral by oral day by route with route with oral route meals. meals. with meals. metoprolol metoprolol No metoprolol [facility] tartrate 25 tartrate 25 tartrate Family mg tablet mg tablet 25 mg Prac tic tablet e omeprazole omeprazole No omeprazole [facility] 40 mg 40 mg 40 mg Family capsule,del capsule,del capsule,de Practic ayed ayed layed e release release release TAKE 1 TAKE 1 TAKE 1 CAPSULE BY CAPSULE BY CAPSULE BY MOUTH ONCE MOUTH ONCE MOUTH ONCE DAILY DAILY DAILY Pancreaze Pancreaze No Pancreaze [place] 4,200 4,200 4,200 Family unit-14,200 unit-14,200 unit-14,20 Practic unit-24,600 unit-24,600 0 e unit unit unit-24,60 capsule,del capsule,del 0 unit ayed ayed capsule,de release release layed TAKE 1 TAKE 1 release CAPSULE BY CAPSULE BY TAKE 1 MOUTH 3 MOUTH 3 CAPSULE BY TIMES A DAY TIMES A DAY MOUTH 3 BEFORE BEFORE TIMES A MEALS MEALS DAY BEFORE MEALS pantoprazol pantoprazol No pantoprazo [place] e 40 mg e 40 mg le 40 mg Famil y tablet,alejandra tablet,alejandra tablet,del Practic yed release yed release ayed e TAKE 1 TAKE 1 release TABLET BY TABLET BY TAKE 1 MOUTH ONCE MOUTH ONCE TABLET BY DAILY DAILY MOUTH ONCE DAILY sucralfate sucralfate No sucralfate [facility] 1 gram 1 gram 1 gram Family tablet TAKE tablet TAKE tablet Practic 1 TABLET BY 1 TABLET BY TAKE 1 e MOUTH TWICE MOUTH TWICE TABLET BY DAILY FOR DAILY FOR MOUTH 14 DAYS 14 DAYS TWICE DAILY FOR 14 DAYS tramadol 50 tramadol 50 No tramadol [place] mg tablet mg tablet 50 mg Fami ly TAKE 1 TAKE 1 tablet Practic TABLET BY TABLET BY TAKE 1 e MOUTH EVERY MOUTH EVERY TABLET BY 4 TO 6 4 TO 6 MOUTH HOURS HOURS EVERY 4 TO NEEDED NEEDED 6 HOURS NEEDED trazodone trazodone No trazodone [facility] 100 mg 100 mg 100 mg Family tablet TAKE tablet TAKE tablet Practic 1 TABLET BY 1 TABLET BY TAKE 1 e MOUTH AT MOUTH AT TABLET BY BEDTIME BEDTIME MOUTH AT NEEDED NEEDED BEDTIME NEEDED triazolam triazolam No triazolam [facility] 0.25 mg 0.25 mg 0.25 mg Family tablet TAKE tablet TAKE tablet Practic 1 TABLET BY 1 TABLET BY TAKE 1 e MOUTH 1 MOUTH 1 TABLET BY HOUR PRIOR HOUR PRIOR MOUTH 1 TO DENTAL TO DENTAL HOUR PRIOR APPOINTMENT APPOINTMENT TO DENTAL AND BRING AND BRING APPOINTMEN REMAINING REMAINING T AND TABLETS TO TABLETS TO BRING DENTAL DENTAL REMAINING APPOINTMENT APPOINTMENT TABLETS TO DENTAL APPOINTMEN T cholecalcif cholecalcif No cholecalci [facility] dillan pantoja Family (vitamin (vitamin (vitamin Pra ctic D3) 1,250 D3) 1,250 D3) 1,250 e mcg (50,000 mcg (50,000 mcg unit) unit) (50,000 capsule capsule unit) TAKE 1 TAKE 1 capsule CAPSULE BY CAPSULE BY TAKE 1 MOUTH ONCE MOUTH ONCE CAPSULE BY A WEEK A WEEK MOUTH ONCE A WEEK clopidogrel clopidogrel No clopidogre [facility] 75 mg 75 mg l 75 mg Family tablet TAKE tablet TAKE tablet Practic 1 TABLET BY 1 TABLET BY TAKE 1 e MOUTH ONCE MOUTH ONCE TABLET BY DAILY FOR DAILY FOR MOUTH ONCE 30 DAYS 30 DAYS DAILY FOR 30 DAYS Vital Signs Vital Name Observation Time Observation Value Comments Source BP Diastolic 2020-09-28 00:00:00 90 mm[Hg] [facility] Height 2020-09-28 00:00:00 65 [in_i] [facility] BMI (Body Mass 2020-09-28 00:00:00 39.1 kg/m2 [facility] Index) Practice BP Systolic 2020-09-28 00:00:00 155 mm[Hg] [facility] Body Weight 2020-09-28 00:00:00 235 [lb_av] [facility] Procedures Procedure Date / Time Performed Performing Clinician Sourc e Cholecystectomy 2020-06-26 00:00:00 [facility] venkata Practice Back Surgery 2005-06-26 00:00:00 [facility] Practice Hysterectomy (Partial) 2005-06-26 00:00:00 [facility] Plan of Care Planned Activity Planned Date Details Comments Source Diagnostic Test 2020-09-28 glucose[facility] Pending 00:00:00 blood [code = Practice glucose, fingerstick, blood] Diagnostic Test 2020-09-28 hemoglobin A1C, [facility] amil Pending 00:00:00 fingerstick [code = Practice hemoglobin A1C, fingerstick] Diagnostic Test 2020-09-28 C-peptide, serum [facility] Pending 00:00:00 [code = C-peptide, Practice serum] Diagnostic Test 2020-09-28 diabetes panel, serum [facility] Pending 00:00:00 [code = diabetes Practice panel, serum] Encounters Start End Encounter Admission Attending Care Care Encounter Source Date/Time Date/Time Type Type Clinicians Facility Department ID 2020-09-28 2020-09-28 Pj FLOREZ [place] - [id number] [facility] 00:00:00 00:00:00 [place] [facility] Chapis Baker - Praclakshmi garza MD: [id number] [address], [place] [address] , Ph. 2020-09-18 2020-09-18 Office VALERY Khan [id number] 13:57:46 14:50:20 Visit [facility] [id number] [place] [id number] [place] [id number] nal [address] 2020-09-15 2020-09-15 Orders Doctor PAM [id number] 00:00:00 00:00:00 Only Unassigned, RINCON [id number] [place] [facility] [id number] Results This patient has no known results.
[2020-11-29 20:43] LABS: Absolute Lymphocytes (CBC) 2.8 K/uL (0.7-4.9); Basophils % 0.6 % (0-1.3); Hematocrit 41.9 % (36.0-45.0); Lymphocytes % 41.2 % (15.3-44.8); MPV 7.6 fL (7.6-11.3)
[2020-11-29 21:01] LABS: ALT/SGPT 18 U/L (12-78); AST/SGOT 11 U/L (15-37); Albumin 3.9 g/dL (3.4-5.0); Alkaline Phosphatase 74 U/L (45-117); BUN Blood Urea Nitrogen 5 mg/dL (7-18); Bicarbonate 28 mmol/L (21-32); Bilirubin Direct 0.1 mg/dL (0-0.2); Bilirubin Total 0.6 mg/dL (0.2-1.0); Glucose Level 214 mg/dL (74-106); Lipase 41 U/L (73-393); Potassium 3.2 mmol/L (3.5-5.1); Sodium Level 137 mmol/L (136-145)
[2020-11-29] MEDS ORDERED: ONDANSETRON 4 MG/2 ML VIAL ONE (21:04)
[2020-11-29] MEDS ORDERED: MORPHINE 4 MG/ML SYR ONE (21:04)
[2020-11-29] MEDS ORDERED: NA CHLORIDE 0.9% 1,000 ML ONE (21:05)
--- NOTE | 2020-11-29 22:11 | ER ---
Nurse's Notes [facility] Name: Kerry Sanford Age: 54 yrs Sex: Female : 1965 Arrival Date: 11/29/2020 Time: 19:44 Bed 17 Private MD: Diagnosis: Cyclical vomiting, intractable;Gastritis, unspecified, without bleeding Presentation: 11/29 20:08 Chief complaint: Patient states: she has been feeling sick every day since she had her bb gallbladder out a year ago she is seeing Dr Bills and was recently at [facility] for the same symptoms but the pain is getting worse "I am tired of being sick". Coronavirus screen: At this time, the client does not indicate any symptoms associated with coronavirus-19. Ebola Screen: No symptoms or risks identified at this time. Initial Sepsis Screen: Does the patient meet any 2 criteria? No. Patient's initial sepsis screen is negative. Does the patient have a suspected source of infection? No. Patient's initial sepsis screen is negative. Risk Assessment: Do you want to hurt yourself or someone else? Patient reports no desire to harm self or others. Onset of symptoms is unknown. 20:08 Method Of Arrival: Wheelchair bb 20:08 Acuity: YADI 3 bb Triage Assessment: 22:13 General: Appears in no apparent distress. Behavior is calm, cooperative. Pain: Denies ak2 pain. GI: Reports upper abdominal pain, nausea, vomiting. 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 - Social history:: Smoking status: Patient denies any tobacco usage or history of. Patient/guardian denies using alcohol, street drugs. Screenin:12 Abuse screen: Denies threats or abuse. Denies injuries from another. Nutritional ak2 screening: No deficits noted. Tuberculosis screening: No symptoms or risk factors identified. Fall Risk None identified. Assessment: 23:46 General: report called to rn. GI: Abdomen is non-distended. ak2 Vital Signs: 20:08 BP 167 / 94; Pulse 102; Resp 16 S; Temp 98(O); Pulse Ox 99% on R/A; Weight 106.59 kg bb (R); Height 5 ft. 5 in. (165.10 cm) (R); Pain 10/10; 22:11 BP 142 / 88; Pulse 86; Resp 20; Pulse Ox 98% on R/A; ak2 23:29 BP 148 / 86; Pulse 85; Resp 20; Pulse Ox 98% on R/A; ak2 20:08 Body Mass Index 39.11 (106.59 kg, 165.10 cm) bb ED Course: 19:44 Patient arrived in ED. es 20:09 Nitin Chen MD is Attending Physician. tw4 20:11 Triage completed. bb 20:13 Arm band placed on Patient placed in an exam room, on a stretcher, on pulse oximetry. bb Family accompanied patient. 20:29 Braxton Gallardo is Primary Nurse. ak2 22:10 Angel Aleman is Hospitalizing Provider. tw4 22:12 Bed in low position. Call light in reach. ak2 22:13 No provider procedures requiring assistance completed. Inserted saline lock: 20 gauge ak2 in right forearm, using aseptic technique. Administered Medications: 20:51 Drug: NS 0.9% 1000 ml Route: IV; Rate: 1 bolus; Site: right forearm; ak2 20:52 Drug: morphine 4 mg Route: IVP; Site: right antecubital; ak2 20:52 Drug: Zofran (Ondansetron) 4 mg Route: IVP; Site: right forearm; ak2 21:53 Drug: ProTONIX (pantoprazole) 40 mg Route: IVP; Site: right forearm; ak2 22:30 Drug: Potassium Chloride 20 mEq Route: IV; Rate: calculated rate; Site: right forearm; ak2 23:56 Drug: morphine 4 mg Route: IVP; Site: right forearm; ak2 Outcome: 22:10 Decision to Hospitalize by Provider. tw4 06 00:04 Patient left the ED. mw2 Signatures: Judy De La Rosa Brenda, TALYA RN bb Nitin Chen MD MD tw4 Ashley Dewitt 2 Braxton Gallardo ms2
--- NOTE | 2020-11-29 22:11 | EDPHYS ---
Physician Documentation [facility] Name: Kerry Sanford Age: 54 yrs Sex: Female : 1965 Arrival Date: 11/29/2020 Time: 19:44 Bed 17 Private MD: ED Physician Nitin Chen HPI: 11/29 23:58 This 54 yrs old Black Female presents to ER via Wheelchair with complaints of Nausea, tw4 Diarrhea, Abdominal Pain, High Blood Pressure, High Blood Sugar. 23:58 The patient presents to the emergency department with nausea, vomiting, abdominal pain. tw4 Onset: The symptoms/episode began/occurred 3 month(s) ago. Possible causes: flare up of bowel problem. The symptoms are aggravated by nothing. The symptoms are alleviated by nothing. The patient has not experienced similar symptoms in the past. 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 - Social history:: Smoking status: Patient denies any tobacco usage or history of. Patient/guardian denies using alcohol, street drugs. ROS: 23:58 Constitutional: Negative for fever, chills, and weight loss, Eyes: Negative for injury, tw4 pain, redness, and discharge, Cardiovascular: Negative for chest pain, palpitations, and edema, Respiratory: Negative for shortness of breath, cough, wheezing, and pleuritic chest pain. 23:58 MS/Extremity: Negative for injury and deformity, Skin: Negative for injury, rash, and discoloration, Neuro: Negative for headache, weakness, numbness, tingling, and seizure. 23:58 Abdomen/GI: Positive for nausea and vomiting, nausea, vomiting, Negative for abdominal pain, nausea, vomiting, and diarrhea, diarrhea, constipation, abdominal cramps, abdominal distension, anorexia, dysphagia, hematemesis, black/tarry stool, rectal pain, rectal bleeding, bowel incontinence. Exam: 23:58 Constitutional: This is a well developed, well nourished patient who is awake, alert, tw4 and in no acute distress. Head/Face: Normocephalic, atraumatic. Chest/axilla: Normal chest wall appearance and motion. Nontender with no deformity. No lesions are appreciated. Cardiovascular: Regular rate and rhythm with a normal S1 and S2. No gallops, murmurs, or rubs. Normal PMI, no JVD. No pulse deficits. Respiratory: Lungs have equal breath sounds bilaterally, clear to auscultation and percussion. No rales, rhonchi or wheezes noted. No increased work of breathing, no retractions or nasal flaring. Abdomen/GI: Soft, non-tender, with normal bowel sounds. No distension or tympany. No guarding or rebound. No evidence of tenderness throughout. Back: No spinal tenderness. No costovertebral tenderness. Full range of motion. Skin: Warm, dry with normal turgor. Normal color with no rashes, no lesions, and no evidence of cellulitis. MS/ Extremity: Pulses equal, no cyanosis. Neurovascular intact. Full, normal range of motion. Neuro: Awake and alert, GCS 15, oriented to person, place, time, and situation. Cranial nerves II-XII grossly intact. Motor strength 5/5 in all extremities. Sensory grossly intact. Cerebellar exam normal. Normal gait. Vital Signs: 20:08 BP 167 / 94; Pulse 102; Resp 16 S; Temp 98(O); Pulse Ox 99% on R/A; Weight 106.59 kg bb (R); Height 5 ft. 5 in. (165.10 cm) (R); Pain 10/10; 22:11 BP 142 / 88; Pulse 86; Resp 20; Pulse Ox 98% on R/A; ak2 23:29 BP 148 / 86; Pulse 85; Resp 20; Pulse Ox 98% on R/A; ak2 20:08 Body Mass Index 39.11 (106.59 kg, 165.10 cm) bb MDM: 22:10 Patient medically screened. tw4 06 00:01 Differential diagnosis: Nonspecific abd pain, gastritis. Data reviewed: vital signs, tw4 nurses notes. Data interpreted: Pulse oximetry: Interpretation: normal. Counseling: I had a detailed discussion with the patient and/or guardian regarding: the historical points, exam findings, and any diagnostic results supporting the discharge/admit diagnosis. Medical screen evaluation completed. [facility] emergency medical condition absent. Medication response: morphine relieved the patient's pain. Symptoms have resolved. Response to treatment: the patient's symptoms have mildly improved after treatment, and as a result, I will admit patient. Physician consultation: Angel Aleman regarding admission, to the telemetry unit. patient's condition, and will see patient. 11/29 20:09 Order name: Basic Metabolic Panel tw4 11/29 20:09 Order name: CBC with Diff; Complete Time: 21:40 tw4 11/29 20:09 Order name: Hepatic Function; Complete Time: 21:40 tw4 11/29 20:09 Order name: Lipase; Complete Time: 21:40 tw4 11/29 20:10 Order name: Basic Metabolic Panel; Complete Time: 21:40 EDMD 11/29 23:21 Order name: SARS-COV-2 RT PCR EDMS 11/29 23:23 Order name: CONS Physician Consult EDMD 11/29 20:09 Order name: IV Saline Lock; Complete Time: 22:44 tw4 11/29 20:09 Order name: Labs collected and sent; Complete Time: 22:44 tw4 Administered Medications: 11/29 20:51 Drug: NS 0.9% 1000 ml Route: IV; Rate: 1 bolus; Site: right forearm; ak2 20:52 Drug: morphine 4 mg Route: IVP; Site: right antecubital; ak2 20:52 Drug: Zofran (Ondansetron) 4 mg Route: IVP; Site: right forearm; ak2 21:53 Drug: ProTONIX (pantoprazole) 40 mg Route: IVP; Site: right forearm; ak2 22:30 Drug: Potassium Chloride 20 mEq Route: IV; Rate: calculated rate; Site: right forearm; ak2 23:56 Drug: morphine 4 mg Route: IVP; Site: right forearm; ak2 Disposition: 11/29/20 22:10 Hospitalization ordered by Angel Aleman for Inpatient Admission. Preliminary diagnosis are Cyclical vomiting, intractable, Gastritis, unspecified, without bleeding. - Bed requested for Telemetry/MedSurg (Inpatient). - Status is Inpatient Admission. mw2 - Condition is Stable. - Problem is an ongoing problem. - Symptoms are unchanged. Signatures: Dispatcher [employer] EDMD Judith Mandujano, RN RN Kyra Sims, RN RN Nitin Clancy MD MD tw4 EsdrasAshley rod mw2 Marcus Wilkins PA PA ej Kapolka, Anthony ak2 Corrections: (The following items were deleted from the chart) 22: 22:14 CORONAVIRUS+MR.LAB.BRZ ordered. [facility] EDMD 23: 22:10 Hospitalization Ordered by Angel Aleman for Inpatient Admission. Preliminary mw diagnosis is Cyclical vomiting, intractable; Gastritis, unspecified, without bleeding. Bed requested for Telemetry/MedSurg (Inpatient). Status is Inpatient Admission. Condition is Stable. Problem is an ongoing problem. Symptoms are unchanged. tw4 11/30 00:04 11/29 23:27 11/29/2020 22:10 Hospitalization Ordered by Angel Aleman for Inpatient mw2 Admission. Preliminary diagnosis is Cyclical vomiting, intractable; Gastritis, unspecified, without bleeding. Bed requested for Telemetry/MedSurg (Inpatient). Status is Inpatient Admission. Condition is Stable. Problem is an ongoing problem. Symptoms are unchanged. mw
[2020-11-29] MEDS ORDERED: PANTOPRAZOLE 40 MG INJ ONE (22:12)
[2020-11-29] MEDS ORDERED: KCL 20 MEQ/100 mL IVPB 20 MEQ/100 ML BAG IV ONE (22:41)
[2020-11-30] MEDS ORDERED: MORPHINE 4 MG/ML SYR ONE (00:14)
[2020-11-30] MEDS ORDERED: SODIUM CHLORIDE 0.9% 10ML INJ IV PRN (00:26)
[2020-11-30] MEDS ORDERED: METOCLOPRAMIDE 10 MG/2mL INJ IV PRN (00:26)
[2020-11-30] MEDS ORDERED: HYDRALAZINE HCL 20 MG/ML VIAL IV PRN (00:26)
[2020-11-30] MEDS ORDERED: KCL 20 MEQ/100 mL IVPB 20 MEQ/100 ML BAG IV SCH ×2 (00:26→09:00)
[2020-11-30] MEDS ORDERED: ACETAMINOPHEN 500 MG TAB PO PRN (00:26)
[2020-11-30] MEDS: NA CHLORIDE 0.9% 1,000 ML IV SCH ×3 (00:26→18:02)
[2020-11-30 00:32] VITALS: BMI 36.6
--- NOTE | 2020-11-30 01:18 | P.HP ---
Certification for Inpatient Patient admitted to: Inpatient With expected LOS: >2 Midnights Patient will require the following post-hospital care: None Practitioner: I am a practitioner with admitting privileges, knowledge of patient current condition, hospital course, and medical plan of care. Services: Services provided to patient in accordance with Admission requirements found in Title 42 Section 412.3 of the Code of Federal Regulations Patient History Date of Service: 11/30/20 Primary Care Provider: Erin Reason for admission: intractable nausea and vomiting History of Present Illness: Ms. Sanford is a 54 yo F with HTN and DM here today for intractable nausea and vomiting since . She reports 04/04 constant gnawing epigastric pain, diarrhea, anorexia, and weight loss. Symptoms began in January 2020 after she had a cholecystectomy. She says she has not had a single normal day since then. She follows with Dr. Schmitt. EGD showed gastritis, and he has plans to do a colonoscopy. She reports being under stress taking care of her mom and grandma who has just been placed on hospice. CT scan done at [facility]. K 3.2. Glu 214. Allergies meperidine HCl [From Demerol] Allergy (Verified 11/30/20 00:32) hallucination venlafaxine HCl [From Effexor] Allergy (Verified 11/30/20 00:32) hallucination Home Medications: Trazodone HCl 100 mg PO BEDTIME 09/21/20 Lactobacillus Acidophilus [Acidophilus Lactobacilli] 1 each PO TID #90 capsule 09/23/20 Pantoprazole [Protonix Tab] 40 mg PO BID #60 tab 09/24/20 Sucralfate [Carafate -Tab] 1 gm PO QID #90 tab 09/24/20 Metoprolol Tartrate [Lopressor*] 25 mg PO DAILY 11/30/20 Ondansetron [Zofran (Odt)*] 4 mg PO TIDP PRN 11/30/20 Promethazine Tab [Phenergan*] 25 mg PO TIDP PRN 11/30/20 - Past Medical/Surgical History Has patient received pneumonia vaccine in the past: No Diabetic: Yes -: Diabetes mellitus type 2 -: Hypertension -: Peripheral vascular disease -: Depression -: GERD -: Back surgery -: -: Cholecystectomy -: Tubal ligation -: Hysterectomy Psychosocial/ Personal History: Patient works at [employer]. - Family History Father -: Cancer Mother -: Heart disease, Hypertension Brother -: Heart disease, Hypertension, Diabetes - Social History Smoking Status: Never smoker Alcohol use: No CD- Drugs: No Caffeine use: No Place of Residence: Home Review of Systems 10-point ROS is otherwise unremarkable Gastrointestinal: Nausea, Vomiting, Abdominal Pain, Diarrhea Physical Examination - Vital Signs Temperature: 98 F Blood Pressure: 148/86 Pulse: 85 Respirations: 20 - Physical Exam General: Alert, In no apparent distress HEENT: Atraumatic, PERRLA, Mucous membr. moist/pink, EOMI, Sclerae nonicteric Neck: Supple, 2+ carotid pulse no bruit, No LAD, Without JVD or thyroid abnormality Respiratory: Clear to auscultation bilaterally, Normal air movement Cardiovascular: Regular rate/rhythm, Normal S1 S2 Gastrointestinal: Normal bowel sounds, Soft and benign, Non-distended, No ascites, No masses, No rebound, No guarding, Tenderness Musculoskeletal: No tenderness Integumentary: No rashes Neurological: Normal gait, Normal speech, Normal strength at 5/5 x4 extr, Normal tone, Normal affect Lymphatics: No axilla or inguinal lymphadenopathy - Studies Laboratory Data (last 24 hrs) 11/29/20 20:30: WBC 6.70, Hgb 13.8, Hct 41.9, Plt Count 294 11/29/20 20:30: Sodium 137, Potassium 3.2 L, BUN 5 L, Creatinine 0.62, Glucose 214 H, Total Bilirubin 0.6, AST 11 L, ALT 18, Alkaline Phosphatase 74, Lipase 41 L Assessment and Plan - Problems (Diagnosis) (1) HTN (hypertension) Current Visit: Yes Status: Chronic Qualifiers: Hypertension type: essential hypertension Qualified Code(s): I10 - Essential (primary) hypertension (2) T2DM (type 2 diabetes mellitus) Current Visit: Yes Status: Chronic 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 use Diabetes mellitus complication status: without complication Qualified Code(s): E11.9 - Type 2 diabetes mellitus without complications (3) PVD (peripheral vascular disease) Current Visit: Yes Status: Chronic (4) Epigastric abdominal pain Current Visit: No Status: Acute (5) Nausea & vomiting Current Visit: No Status: Acute Qualifiers: Vomiting type: unspecified Vomiting Intractability: unspecified Qualified Code(s): R11.2 - Nausea with vomiting, unspecified - Plan GI consulted NPO continue IVF, protonix, antiemetics hydralazine PRN for BP accuchecks and sliding scale insulin, A1c pending stool culture pending Discharge Plan: Home Plan to discharge in: 48 Hours - Advance Directives Does patient have a Living Will: No Does patient have a Durable POA for Healthcare: No - Code Status/Comfort Care Code Status Assessed: Yes (full code) Critical Care: No Time Spent Managing Pts Care (In Minutes): 70
[2020-11-30] MEDS: MORPHINE 2 MG/ML SYR IV PRN (04:41)
[2020-11-30] MEDS: INSULIN -REGULAR HUMAN 50 UNIT/0.5 ML ML SQ SCH ×3 (06:00→18:00)
[2020-11-30] MEDS: ONDANSETRON 4 MG/2 ML VIAL IV PRN (06:07)
[2020-11-30 06:20] LABS: Absolute Lymphocytes (CBC) 2.7 K/uL (0.7-4.9); Hematocrit 36.3 % (36.0-45.0); Lymphocytes % 51.4 % (15.3-44.8); MPV 7.7 fL (7.6-11.3); RBC Red Blood Cell Count 4.38 M/uL (3.86-4.86)
[2020-11-30 06:53] LABS: ALT/SGPT 16 U/L (12-78); AST/SGOT 10 U/L (15-37); Albumin 3.2 g/dL (3.4-5.0); Alkaline Phosphatase 61 U/L (45-117); BUN Blood Urea Nitrogen 6 mg/dL (7-18); Bicarbonate 30 mmol/L (21-32); Bilirubin Total 0.6 mg/dL (0.2-1.0); Glucose Level 169 mg/dL (74-106); HDL Cholesterol 39 mg/dL (40-60); LDL Cholesterol, Calculated 187 (<130); Magnesium 2.1 mg/dL (1.8-2.4); Phosphorus 4.4 mg/dL (2.5-4.9); Potassium 3.6 mmol/L (3.5-5.1); Protein, Total 6.5 g/dL (6.4-8.2); Sodium Level 140 mmol/L (136-145)
[2020-11-30] MEDS ORDERED: INSULIN -REGULAR HUMAN 50 UNIT/0.5 ML ML SQ SCH (07:30)
[2020-11-30 08:15] LABS: Blood Morphology Comment NOT SEEN (NOT SEEN); Platelet Estimate ADEQ
[2020-11-30] MEDS: PANTOPRAZOLE 40 MG INJ IVP SCH ×2 (08:54→22:58)
[2020-11-30] MEDS: ENOXAPARIN 40 MG/0.4 ML SQ SCH (08:55)
[2020-11-30] MEDS: SUCRALFATE 1 GM TABLET PO SCH ×4 (09:06→22:58)
[2020-11-30] MEDS: METOPROLOL TAR 25 MG TAB PO SCH (09:06)
[2020-11-30] MEDS ORDERED: propofoL 200 MG/20 ML VIAL IV ONE ×2 (13:45)
[2020-11-30] MEDS ORDERED: LIDOCAINE 1% MPF 5 ML VIAL ONE (13:45)
--- NOTE | 2020-11-30 14:01 | ENDO RPT ---
[address], [address] EGD PROCEDURE REPORT EXAM DATE: 11/30/2020 PATIENT NAME: Kerry Sanford MR#: [id number] BIRTHDATE: 1965 ATTENDING: Henrique Schmitt Dr STATUS: inpatient - 7 STABLE MANAGER: Elise Crook RN and Debra SCHULTZ INDICATIONS: The patient is a 54 yr old Female here for an EGD due to mid epigastric abdominal pain and nausea and vomiting PROCEDURE PERFORMED: EGD with biopsy MEDICATIONS: Per Anesthesia. TOPICAL ANESTHETIC: none CONSENT: The patient understands the risks and benefits of the procedure and understands that these risks include, but are not limited to: sedation, allergic reaction, infection, perforation and/or bleeding. Alternative means of evaluation and treatment include, among others: physical exam, x-rays, and/or surgical intervention. The patient elects to proceed with this endoscopic procedure. DESCRIPTION OF PROCEDURE: During intra-op preparation period all mechanical medical equipment was checked for proper function. Hand hygiene and appropriate measures for infection prevention was taken. Procedure, possible complications, and alternatives including but not limited to the possibility of bleeding, perforation, tear, infection, sepsis, need for surgery, need for blood transfusion, and anesthesia related complications were explained to the patient. After the risks, benefits and alternatives of the procedure were thoroughly explained, Informed consent was verified, confirmed and timeout was successfully executed by the treatment team. The patient was placed in the left lateral position. The patient was anesthetized with topical anesthesia. Through the anesthetized oropharyngeal area, the scope was passed without any difficulty. The EG-2990i ([id number]) and Pentax EG-[id number] ([id number]) endoscope was introduced through the mouth and advanced to the second portion of the duodenum. Retroflexed views revealed no abnormalities. The gastroscope was then slowly withdrawn and removed. Large amount of bile fluid in the body of the stomach was found in the body of the stomach - suctioned out with endoscope. Moderate gastritis was found in the body and the antrum of the stomach. Multiple biopsies were obtained and sent to pathology. ADVERSE EVENTS: There were no complications. IMPRESSIONS: 1. Large amount of bile fluid in the body of the stomach - suctioned out with endoscope 2. Moderate gastritis was found in the body and the antrum of the stomach, s/p biopsies RECOMMENDATIONS: 1. await biopsy results 2. acid suppression therapy 3. gastric emptying study REPEAT EXAM: Henrique Schmitt Dr eSigned: Henrique Schmitt Dr 11/30/2020 2:01 PM cc: CPT CODES: ICD9 CODES: PATIENT NAME: Kerry Sanford [place] MR#: [id number]
--- NOTE | 2020-11-30 14:06 | ENDO RPT ---
[address], [address] EGD PROCEDURE REPORT EXAM DATE: 11/30/2020 PATIENT NAME: Kerry Sanford MR#: [id number] BIRTHDATE: 1965 ATTENDING: Henrique Schmitt Dr STATUS: inpatient - 7 OPERATION AGENT: Elise Crook RN and Debra SCHULTZ INDICATIONS: The patient is a 54 yr old Female here for an EGD due to mid epigastric abdominal pain, nausea and vomiting, and diarrhea PROCEDURE PERFORMED: EGD with biopsy MEDICATIONS: Per Anesthesia. TOPICAL ANESTHETIC: none CONSENT: The patient understands the risks and benefits of the procedure and understands that these risks include, but are not limited to: sedation, allergic reaction, infection, perforation and/or bleeding. Alternative means of evaluation and treatment include, among others: physical exam, x-rays, and/or surgical intervention. The patient elects to proceed with this endoscopic procedure. DESCRIPTION OF PROCEDURE: During intra-op preparation period all mechanical medical equipment was checked for proper function. Hand hygiene and appropriate measures for infection prevention was taken. Procedure, possible complications, and alternatives including but not limited to the possibility of bleeding, perforation, tear, infection, sepsis, need for surgery, need for blood transfusion, and anesthesia related complications were explained to the patient. After the risks, benefits and alternatives of the procedure were thoroughly explained, Informed consent was verified, confirmed and timeout was successfully executed by the treatment team. The patient was placed in the left lateral position. The patient was anesthetized with topical anesthesia. Through the anesthetized oropharyngeal area, the scope was passed without any difficulty. The EG-2990i ([id number]) and Pentax EG-2990i ([id number]) endoscope was introduced through the mouth and advanced to the second portion of the duodenum. Retroflexed views revealed no abnormalities. The gastroscope was then slowly withdrawn and removed. Large amount of bile fluid in the body of the stomach was found in the body of the stomach - suctioned out with endoscope. Moderate gastritis was found in the body and the antrum of the stomach. Multiple biopsies were obtained and sent to pathology. Small bowel biopsies obtained with history of chronic unexplained diarrhea. ADVERSE EVENTS: There were no complications. IMPRESSIONS: 1. Large amount of bile fluid in the body of the stomach - suctioned out with endoscope 2. Moderate gastritis was found in the body and the antrum of the stomach, s/p biopsies 3. Small bowel biopsies obtained with history of chronic unexplained diarrhea RECOMMENDATIONS: 1. await biopsy results 2. acid suppression therapy 3. gastric emptying study REPEAT EXAM: Henrique Schmitt Dr eSigned: Henrique Schmitt Dr 11/30/2020 2:06 PM Revised: 11/30/2020 2:06 PM cc: CPT CODES: ICD9 CODES: PATIENT NAME: Kerry Sanford MR#: [id number]
--- NOTE | 2020-11-30 17:21 | P.PN ---
Subjective Date of Service: 11/30/20 Primary Care Provider: Erin Chief Complaint: intractable nausea and vomiting Patient reports dry heaving. Seen by GI and EGD done today. Patient found to have a lot of bile fluid in her stomach with moderate gastritis. Blood sugar readings are elevated. Cholesterol and LDL quite high. Physical Examination - Vital Signs Temperature: 97.4 F Blood Pressure: 163/74 Pulse: 76 Respirations: 18 Pulse Ox (%): 97 - Physical Exam General: Alert, In no apparent distress, Oriented x3 HEENT: Mucous membr. moist/pink, Sclerae nonicteric Neck: JVD not distended Respiratory: Clear to auscultation bilaterally, Normal air movement Cardiovascular: No edema, Regular rate/rhythm, Normal S1 S2 Gastrointestinal: Soft and benign, Non-distended, No tenderness Musculoskeletal: No swelling, No tenderness Integumentary: No rashes Neurological: Normal speech, Normal strength at 5/5 x4 extr - Studies Laboratory Data (last 24 hrs) 11/29/20 20:30: WBC 6.70, Hgb 13.8, Hct 41.9, Plt Count 294 11/29/20 20:30: Sodium 137, Potassium 3.2 L, BUN 5 L, Creatinine 0.62, Glucose 214 H, Total Bilirubin 0.6, AST 11 L, ALT 18, Alkaline Phosphatase 74, Lipase 41 L Assessment And Plan - Current Problems (Diagnosis) (1) Intractable nausea and vomiting Current Visit: Yes Status: Acute (2) Dyspepsia and disorder of function of stomach Current Visit: Yes Status: Acute (3) Uncontrolled type 2 diabetes mellitus Current Visit: Yes Status: Acute (4) HTN (hypertension) Current Visit: Yes Status: Chronic Qualifiers: Hypertension type: essential hypertension Qualified Code(s): I10 - Essential (primary) hypertension - Plan Dr. Schmitt input appreciated. Patient's symptoms could be related to by bile acid reflux, diabetic autonomic neuropathy of gastroparesis. Patient has underlying gastritis. Continue PPI. Gastric emptying study ordered to be done tomorrow morning. Clear liquid diet this evening and NPO post midnight. Would advocate for insulin therapy for blood sugar control. Insulin therapy may also help with gastroparesis. Hemoglobin A1c is 10. Start Lantus insulin once feeding is resumed. Continue home antihypertensives.
[2020-11-30] MEDS: TRAZODONE 50 MG TABLET PO SCH (22:58)
[2020-12-01 04:59] LABS: Absolute Lymphocytes (CBC) 2.2 K/uL (0.7-4.9); Basophils % 0.8 % (0-1.3); Hematocrit 35.7 % (36.0-45.0); MPV 7.6 fL (7.6-11.3); RBC Red Blood Cell Count 4.37 M/uL (3.86-4.86)
[2020-12-01 05:00] LABS: Lymphocytes % 47.3 % (15.3-44.8)
[2020-12-01 05:12] LABS: ALT/SGPT 15 U/L (12-78); AST/SGOT 9 U/L (15-37); Albumin 2.9 g/dL (3.4-5.0); Alkaline Phosphatase 60 U/L (45-117); BUN Blood Urea Nitrogen 5 mg/dL (7-18); Bicarbonate 31 mmol/L (21-32); Bilirubin Total 0.5 mg/dL (0.2-1.0); Glucose Level 172 mg/dL (74-106); Magnesium 2.8 mg/dL (1.8-2.4); Potassium 3.7 mmol/L (3.5-5.1); Protein, Total 6.4 g/dL (6.4-8.2); Sodium Level 142 mmol/L (136-145)
[2020-12-01] MEDS: INSULIN -REGULAR HUMAN 50 UNIT/0.5 ML ML SQ SCH ×4 (05:55→18:00)
[2020-12-01] MEDS: ONDANSETRON 4 MG/2 ML VIAL IV PRN ×2 (07:26→11:59)
[2020-12-01] MEDS: NA CHLORIDE 0.9% 1,000 ML IV SCH ×2 (07:26→17:05)
[2020-12-01] MEDS ORDERED: KCL 20 MEQ/100 mL IVPB 20 MEQ/100 ML BAG IV SCH (08:00)
[2020-12-01 08:16] LABS: Urine Appearance CLEAR (Clear); Urine Bilirubin NEGATIVE (Negative); Urine Blood NEGATIVE (Negative); Urine Color YELLOW (Yellow); Urine Glucose NEGATIVE (Negative); Urine Microscopic Reflex NO UMIC; Urine Protein NEGATIVE (Negative); Urine Specific Gravity <=1.005 (1.005-1.030); Urine Urobilinogen 0.2 mg/dL (0.2-1.0)
[2020-12-01] MEDS: PANTOPRAZOLE 40 MG INJ IVP SCH ×3 (09:00→20:41)
[2020-12-01] MEDS: METOPROLOL TAR 25 MG TAB PO SCH ×2 (09:00→11:56)
[2020-12-01] MEDS: POTASSIUM CL SA 10 MEQ TAB PO ONE ×2 (09:00→11:57)
[2020-12-01] MEDS: ENOXAPARIN 40 MG/0.4 ML SQ SCH (09:00)
[2020-12-01] MEDS: SUCRALFATE 1 GM TABLET PO SCH ×4 (09:00→20:41)
[2020-12-01] MEDS: MORPHINE 2 MG/ML SYR IV PRN (11:59)
--- NOTE | 2020-12-01 12:08 | RAD REPORT ---
EXAM DESCRIPTION: NM - Gastric Emptying Study - 12/01/2020 11:55 am CLINICAL HISTORY: MASSIMO pain, N/V in a DM COMPARISON: Gastric Emptying Study dated 09/22/2020 TECHNIQUE: The patient was administered approximately 1 mCi Tc 99m sulfur colloid in solid egg meal. Imaging of the left upper quadrant was performed with time/activity curve generated. FINDINGS: Cine-loop images show normal progression of the radiopharmaceutical from the stomach into the small bowel. Time to one-half activity is 144 minutes, normal. Two hour retention is 58%. No othe r significant findings. IMPRESSION: Delayed gastric emptying as detailed.
[2020-12-01] MEDS: ERYTHROMYCIN 200 MG/5ML 100ML PO SCH ×2 (13:00→17:05)
[2020-12-01] MEDS ORDERED: MAGNESIUM CITRATE 300 ML BOT PO SCH (13:00)
[2020-12-01] MEDS: METOCLOPRAMIDE 10 MG/2mL INJ IV SCH ×2 (13:14→17:05)
[2020-12-01] MEDS ORDERED: GOLYTELY 4000 ML PO SCH (14:00)
--- NOTE | 2020-12-01 15:23 | P.PN ---
Subjective Date of Service: 12/01/20 Primary Care Provider: Erin Chief Complaint: intractable nausea and vomiting Subjective: Other (had some temporary improvement last night, woke again with nausea and epigastric abdominal pain/discomfort gastric emptying study today consistent with gastroparesis) Review of Systems 10-point ROS is otherwise unremarkable Physical Examination - Vital Signs Temperature: 97.5 F Blood Pressure: 143/71 Pulse: 73 Respirations: 16 Pulse Ox (%): 96 - Studies Microbiology Data (last 24 hrs): 11/30/20 14:52 Stool Occult Blood - Final Assessment & Plan Physician Review Additional Text: Physical Exam General: Alert, oriented x3, appears uncomfortable HEENT: Mucous membr. moist/pink, Sclerae nonicteric Respiratory: Clear to auscultation bilaterally, Normal air movement Cardiovascular: No edema, Regular rate/rhythm, Normal S1 S2 Gastrointestinal: Soft and benign, Non-distended, mild TTP in epigastrium Musculoskeletal: No joint swelling/tenderness Problem list Intractable nausea, vomiting, and diarrhea Dyspepsia in disorder function of stomach Gastroparesis Uncontrolled type 2 diabetes mellitus, insulin-dependent Hypertension -EGD with noted bile acid in stomach -gastric emptying study consistent with gastroparesis -start erythromycin and Reglan per GI recommendations -continue PPI -clear liquid diet, NPO after midnight -patient to have a colonoscopy tomorrow -A1c: 10, continue insulin - needs better control Dispo: anticipate dc home, likely tomorrow, pending c-scope and improvement of symptoms Time Spent Managing Pts Care (In Minutes): 35
[2020-12-01] MEDS: TRAZODONE 50 MG TABLET PO SCH (20:41)
[2020-12-02] MEDS: METOCLOPRAMIDE 10 MG/2mL INJ IV SCH (01:03)
[2020-12-02] MEDS: ERYTHROMYCIN 200 MG/5ML 100ML PO SCH ×3 (01:04→12:00)
[2020-12-02] MEDS: NA CHLORIDE 0.9% 1,000 ML IV SCH ×2 (02:21→14:40)
[2020-12-02 05:55] LABS: Basophils % 0.8 % (0-1.3); Hematocrit 36.4 % (36.0-45.0); Lymphocytes % 46.6 % (15.3-44.8); MPV 7.7 fL (7.6-11.3); RBC Red Blood Cell Count 4.41 M/uL (3.86-4.86)
[2020-12-02] MEDS: INSULIN -REGULAR HUMAN 50 UNIT/0.5 ML ML SQ SCH ×3 (06:00→12:00)
[2020-12-02 06:12] LABS: ALT/SGPT 17 U/L (12-78); AST/SGOT 7 U/L (15-37); Albumin 3.1 g/dL (3.4-5.0); Alkaline Phosphatase 61 U/L (45-117); BUN Blood Urea Nitrogen 4 mg/dL (7-18); Bicarbonate 28 mmol/L (21-32); Bilirubin Total 0.5 mg/dL (0.2-1.0); Glucose Level 184 mg/dL (74-106); Magnesium 2.3 mg/dL (1.8-2.4); Potassium 3.5 mmol/L (3.5-5.1); Protein, Total 6.6 g/dL (6.4-8.2); Sodium Level 141 mmol/L (136-145)
[2020-12-02] MEDS: METOPROLOL TAR 25 MG TAB PO SCH ×2 (07:53→14:39)
[2020-12-02] MEDS: ENOXAPARIN 40 MG/0.4 ML SQ SCH (07:53)
[2020-12-02] MEDS: SUCRALFATE 1 GM TABLET PO SCH ×3 (07:53→14:39)
[2020-12-02] MEDS ORDERED: PNEUMOCOCCAL VACCINE 0.5 ML IMVAC ONE (08:00)
[2020-12-02] MEDS: PANTOPRAZOLE 40 MG INJ IVP SCH ×2 (09:00→14:39)
[2020-12-02] MEDS ORDERED: NA CHLORIDE 0.9% 1,000 ML ONE (12:46)
--- NOTE | 2020-12-02 13:05 | P.PN ---
Subjective Date of Service: 12/02/20 Primary Care Provider: Erin Chief Complaint: intractable nausea and vomiting, MASSIMO pain, diarrhea, wt loss Subjective: Improving (No diarrhea since admission she reports. Less N/V, MASSIMO pain on therapy. Tolerating some clear liquids. Gastric emptying study positive. EGD again revealed moderate gastritis with large amount of bile fluid in stomach - suctioned out.) Review of Systems 10-point ROS is otherwise unremarkable General: Weakness (Improving some.), Malaise Gastrointestinal: Nausea, Vomiting, Abdominal Pain Physical Examination - Vital Signs Temperature: 97.9 F Blood Pressure: 143/65 Pulse: 81 Respirations: 19 Pulse Ox (%): 97 - Physical Exam General: Alert, In no apparent distress, Oriented x3, Cooperative HEENT: Atraumatic, Normocephalic, PERRLA, EOMI Neck: Supple Respiratory: Normal air movement Cardiovascular: Normal pulses Gastrointestinal: Tenderness (MASSIMO mild and obese) Neurological: Normal speech, Normal strength at 5/5 x4 extr - Studies Microbiology Data (last 24 hrs): 11/30/20 14:52 Stool Culture & Sensitivity - Final Assessment And Plan - Current Problems (Diagnosis) (1) Weight loss Current Visit: Yes Status: Acute (2) Intractable nausea and vomiting Current Visit: Yes Status: Acute (3) Change in bowel habits Current Visit: No Status: Acute (4) Dehydration Current Visit: No Status: Acute (5) Diarrhea Current Visit: No Status: Acute (6) Epigastric abdominal pain Current Visit: No Status: Acute (7) Fatigue Current Visit: No Status: Acute - Plan REC: 1) await EGD pathology 2) await stool studies 3) colonoscopy 4) continue prn pain medications / anti-emetics 5) IVFs 6) PPI therapy 7) Erythromycin 50 mg po qid and prn Reglan Physician Review Additional Text: Physical Exam General: Alert, oriented x3, appears uncomfortable HEENT: Mucous membr. moist/pink, Sclerae nonicteric Respiratory: Clear to auscultation bilaterally, Normal air movement Cardiovascular: No edema, Regular rate/rhythm, Normal S1 S2 Gastrointestinal: Soft and benign, Non-distended, mild TTP in epigastrium Musculoskeletal: No joint swelling/tenderness Problem list Intractable nausea, vomiting, and diarrhea Dyspepsia in disorder function of stomach Gastroparesis Uncontrolled type 2 diabetes mellitus, insulin-dependent Hypertension -EGD with noted bile acid in stomach -gastric emptying study consistent with gastroparesis -start erythromycin and Reglan per GI recommendations -continue PPI -clear liquid diet, NPO after midnight -patient to have a colonoscopy tomorrow -A1c: 10, continue insulin - needs better control Dispo: anticipate dc home, likely tomorrow, pending c-scope and improvement of symptoms
[2020-12-02] MEDS ORDERED: propofoL 200 MG/20 ML VIAL IV ONE (13:19)
[2020-12-02] MEDS ORDERED: LIDOCAINE 1% MPF 5 ML VIAL ONE (13:20)
[2020-12-02 13:43] VITALS: BP 143/65; TEMP 97.9
[2020-12-02 13:45] VITALS: O2SAT 98
[2020-12-02 14:29] LABS: C.diff Antigen/Toxin Ag neg : Tox neg (NEG : NEG)
[2020-12-02] MEDS ORDERED: GLUCAGON 1 MG/VIAL IM PRN (14:30)
[2020-12-02] MEDS ORDERED: D50W 25 GM/50 ML VIAL IV PRN (14:57)
[2020-12-02] MEDS ORDERED: INSULIN -REGULAR HUMAN 50 UNIT/0.5 ML ML SQ SCH (16:30)
--- NOTE | 2020-12-02 18:54 | CON ---
Date of Consultation: 11/30/2020 Reason For Consultation: Midepigastric pain, nausea, vomiting, weight loss. History Of Present Illness: The patient is a 54-year-old female with history of aziza betes, hypertension. The patient notes having recurrent midepigastric pain, nausea, vomiting, dehydr ation, and continued weight loss. She reports 30 pounds over the past 3 to 6 months. She also has s ome diarrhea prior to admission, but this has since resolved. She denies any melena, hematochezia, h ematemesis, coffee-ground emesis, hematuria, dysuria, polydipsia, chest pain, shortness of breath, fe vers, chills, night sweats. Past Medical History: Significant for diabetes, hypertension, hyperlipidemia, hysterectomy, C-sectio n, tubal ligation, anxiety disorder. Allergies: DEMEROL, EFFEXOR. Home Medications: Include Plavix, Protonix, losartan, tramadol, , Lexapro, Zofran. Family History: Positive for diabetes, hypertension. Social History: , 1 child. No tobacco. No alcohol. Review of Systems: The patient has midepigastric pain, nausea, vomiting, diarrhea, dehydration, and anorexia, 30 pounds weight loss over the past 3 to 6 months, hyperglycemia, glucoses in the 200 to 300 range, hypertensio n. Blood pressure is up to about 200/100. Also fatigue, malaise, completely exhausted physically, m entally, emotionally, taking care of grandmother who was recently put on hospice, taking care of moth er and who has had multiple amputations due to his diabetes and homebound, it appears and put ting her son through college at this time. She denies any melena, hematochezia, hematemesis, coffee- ground emesis, hematuria, dysuria, polydipsia, chest pain, shortness of breath, seizure, syncope, mus stephan aches, joint aches, backaches. She does have anxiety, but no depression reported. Mood does see m somewhat depressed. Physical Examination: Vital Signs: The patient is 5 feet 5 inches, 220 pounds, BMI of 36.6 kg/m2 with a temperature of 98 degrees Fahrenheit, pulse 72, respirations 18, blood pressure 137/71, O2 saturation 97% to 100%. General: She is an obese female, lying in bed, in no acute distress. HEENT: Normocephalic, atraumatic. Anicteric. Pupils equal, round, and reactive to light. Extraocu lar movements are intact. Oropharynx is clear. Neck: Supple. No masses. Respirations: Clear to auscultation bilaterally. Cardiac: Regular rate and rhythm. No gallops. Abdomen: Positive bowel sounds. Soft. Midepigastric pain. Obese. No peritoneal or Leon sign. There is mild guarding of the midepigastric area. Extremities: No clubbing, cyanosis, or edema. 2+ pulses. Neurologic: Alert and oriented x3. Grossly nonfocal. 5/5 motor strength. Sensation intact to ligh t touch. Laboratory Data: The patient has a white count of 5.2, hemoglobin of 12.0, hematocrit 36.3, MCV of 8 3, platelet count 267, polys of 37%, lymphocytes 51%, monocytes 9%, eosinophils 2%, basophils 1%. So dium 140, potassium 3.6, chloride 107, bicarb 30, BUN of 6, creatinine of 0.6, glucose 169. Hemoglob in A1c of 10.1. Calcium 8.7, phosphorus 4.4, magnesium 2.1, total bilirubin 0.6, AST of 10, ALT of 6 9, alkaline phosphatase 61, total protein of 6.5, albumin 3.2, triglycerides 139, cholesterol 254, LD L 187, HDL 39, lipase 41. TSH of 3.2, T free T4 of 1.11. UA is negative. Serologies pending. COVI D-19 test is negative. Impression: 1.Epigastric pain, nausea, vomiting. The patient has known gastritis. She is on Protonix 40 mg b.i .d. and Carafate 1 g p.o. q.a.c. and at bedtime. The patient still has pain with nausea, vomiting. She does have a history of diabetes, poorly controlled as evidenced by a history of glucose in the 20 0 to 300 range up to 400 actually and her hemoglobin A1c of 10.1 and I suspect possible diabetic theodora roparesis, though prior testing was negative, though it was only 2 hours and 30 minutes for our study and repeat that test. We will perform EGD. 2.Change in bowel habits, diarrhea. It seems like this is before admission and seems to have resolve d since admitting to the hospital. We will still check stool studies. 3.Weight loss 30 pounds over the past 4 to 6 months, could be due to diabetes or other. Recommendations: 1.Proceed with EGD. 2.After nausea and vomiting is controlled, proceed with colonoscopy. 3.Check gastric emptying study . 4.IV fluids. 5.Continue p.r.n. pain medicines and antiemetics. 6.PPI therapy. 7.Keep the patient n.p.o. FERNANDO/RADHA Voice ID: [id number] Report ID: [id number]
--- NOTE | 2020-12-02 19:51 | P.DS ---
Admission Date: 11/30/20 Discharge Date: 12/02/20 Primary Care Provider: Erin Disposition: ROUTINE DISCHARGE Discharge Condition: GOOD Reason for Admission: intractable nausea and vomiting, MASSIMO pain, diarrhea, wt loss Consultations: GI - Dr. Schmitt Procedures: EGD (11/30): large amount of bile fluid in body of stomach. Moderate gastritis was found in the body and the antrum of the stomach. s/p biopsies Gastric Emptying Study (12/01): Cine-loop images show normal progression of the radiopharmaceutical from the stomach into the small bowel. Time to one-half activity is 144 minutes, normal. Two hour retention is 58%. No other significant findings. IMPRESSION: Delayed gastric emptying as detailed. C-scope (12/02): polyp removed (final report pending) Problem list Intractable nausea, vomiting, and diarrhea secondary to gastroparesis chronic moderate gastritis Uncontrolled type 2 diabetes mellitus, insulin-dependent Hypertension Brief History of Present Illness: Ms. Sanford is a 54 yo F with HTN and DM here today for intractable nausea and vomiting since . She reports 04/04 constant gnawing epigastric pain, diarrhea, anorexia, and weight loss. Symptoms began in January 2020 after she had a cholecystectomy. She says she has not had a single normal day since then. She follows with Dr. Schmitt. EGD showed gastritis, and he has plans to do a colonoscopy. She reports being under stress taking care of her mom and grandma who has just been placed on hospice. CT scan done at [facility], [facility]. K 3.2. Glu 214. Hospital Course: Patient was treated with anti-emetics, bowel rest, IVF. GI consulted, underwent EGD, c-scope, and gastric emptying study - found to have moderate gastritis and gastroparesis. She was treated with erythromycin and PRN reglan per GI recommendations. She had some improvement of her symptoms and was discharged on erythromycin. May need uptitration or reglan if fails this therapy. Advised to slowly advance diet at home. Continue erythromycin - 3 weeks on, 3 weeks off Follow up:- GI in ~3 weeks PCP in 3-5 days Vital Signs/Physical Exam: Physical Exam General: Alert, oriented x3, appears uncomfortable HEENT: Mucous membr. moist/pink, Sclerae nonicteric Respiratory: Clear to auscultation bilaterally, Normal air movement Cardiovascular: No edema, Regular rate/rhythm, Normal S1 S2 Gastrointestinal: Soft and benign, Non-distended, minimal TTP in epigastrium Musculoskeletal: No joint swelling/tenderness Temp Pulse Resp BP Pulse Ox 97.9 F 81 19 143/65 H 97 12/02/20 13:45 12/02/20 14:39 12/02/20 13:45 12/02/20 14:39 12/02/20 13:45 Laboratory Data at Discharge: WBC 4.30 K/uL (4.3-10.9) 12/02/20 05:27 Hgb 11.9 g/dL (12.0-15.0) L 12/02/20 05:27 Hct 36.4 % (36.0-45.0) 12/02/20 05:27 Plt Count 278 K/uL (152-406) 12/02/20 05:27 Sodium 141 mmol/L (136-145) 12/02/20 05:27 Potassium 3.5 mmol/L (3.5-5.1) 12/02/20 05:27 BUN 4 mg/dL (7-18) L 12/02/20 05:27 Creatinine 0.59 mg/dL (0.55-1.3) 12/02/20 05:27 Glucose 184 mg/dL (74-106) H 12/02/20 05:27 Phosphorus 4.4 mg/dL (2.5-4.9) 11/30/20 05:57 Magnesium 2.3 mg/dL (1.8-2.4) D 12/02/20 05:27 Total Bilirubin 0.5 mg/dL (0.2-1.0) 12/02/20 05:27 AST 7 U/L (15-37) L 12/02/20 05:27 ALT 17 U/L (12-78) 12/02/20 05:27 Alkaline Phosphatase 61 U/L (45-117) 12/02/20 05:27 Triglycerides 139 mg/dL (<150) 11/30/20 05:57 Cholesterol 254 mg/dL (<200) H 11/30/20 05:57 HDL Cholesterol 39 mg/dL (40-60) L 11/30/20 05:57 Cholesterol/HDL Ratio 6.51 11/30/20 05:57 Lipase 41 U/L (73-393) L 11/29/20 20:30 Home Medications: Trazodone HCl 100 mg PO BEDTIME 09/21/20 Lactobacillus Acidophilus [Acidophilus Lactobacilli] 1 each PO TID #90 capsule 09/23/20 Pantoprazole [Protonix Tab*] 40 mg PO BID #60 tab 09/24/20 Sucralfate [Carafate*] 1 gm PO QID #90 tab 09/24/20 Metoprolol Tartrate [Lopressor*] 25 mg PO DAILY 11/30/20 Promethazine Tab [Phenergan*] 25 mg PO TIDP PRN 11/30/20 Erythromycin Ethylsuccinate 1.5 ml PO QID 21 Days #100 ml 12/02/20 New Medications: Erythromycin Ethylsuccinate 1.5 ml PO QID 21 Days #100 ml Physician Discharge Instructions: You were found to have gastroparesis (slowed gastric emptying) likely as a c onsequence of your diabetes. You are discharged home with Erythromycin - to stimulate your gastric emptying. Please continue your other medications as prescribed. Slowly advance your diet as tolerated. Recommend eating smaller more frequent meals vs eating 3 large meals in a day. Please follow up with Dr. Schmitt in 2-3 weeks. Follow up with your PCP in 3-5 days. Diet: ADA Activity: Ad merced Followup: NONE,NONE [Primary Care Provider] - Henrique Schmitt MD [ASSOCIATE-ACTIVE - CAN ADMIT] - Time spent managing pt's care (in minutes): 45
== END 2020-12-02 16:28 | disposition home or self-care (01) | DRG 74 ==
LOC: ER 19:40 → INTOOBSV 23:22 → ERHOLD 23:22 → 2ND 11-30 00:23 → OBSVTOIN 11-30 17:46
PROVIDERS: ADMIT Internal Medicine; ATTEND Internal Medicine
PROC: 0DB68ZX Excision of Stomach, Via Natural or Artificial Opening Endoscopic, Diagnostic (ICD-10-PCS; 2020-11-30)
PROC: 0DB88ZX Excision of Small Intestine, Via Natural or Artificial Opening Endoscopic, Diagnostic (ICD-10-PCS; 2020-11-30)
PROC: 0DBK8ZX Excision of Ascending Colon, Via Natural or Artificial Opening Endoscopic, Diagnostic (ICD-10-PCS; principal; 2020-12-02 11:30)
DX: E11.43 Type 2 diabetes mellitus with diabetic autonomic (poly)neuropathy (principal); E11.65 Type 2 diabetes mellitus with hyperglycemia; K31.84 Gastroparesis; R63.4 Abnormal weight loss; Z68.36 Body mass index [BMI] 36.0-36.9, adult; K29.50 Unspecified chronic gastritis without bleeding; R19.4 Change in bowel habit; E86.0 Dehydration; R19.7 Diarrhea, unspecified; R53.83 Other fatigue; K30 Functional dyspepsia; I10 Essential (primary) hypertension; K64.4 Residual hemorrhoidal skin tags; K64.8 Other hemorrhoids; Z20.822 Contact with and (suspected) exposure to COVID-19
CPT/HCPCS: 36415; 78264; 80048; 80053; 80061; 80076; 81003; 82274; 82947; 83036; 83690; 83735; 84100; 84439; 84443; 85025; 87045; 87046; 87177; 87209; 87324; 87449; 88305; 88312; 94760; 99283; A9541; C9113; G0378; J1650; J2270; J2405; J2704; J2765; J3480; J7030; U0003